=== PATIENT | male | born 1960 | race Two or more races ===

== ENCOUNTER 2025-05-17 18:28 | Inpatient (IN) | payer MEDICARE, MEDICAID ==
[~2025-05-17] VITALS: Ht 177.8 cm; Wt 118.0 kg
[~2025-05-17 18:28] MED LIST: ASPI325T6 PO; ATOR10TA52; CARV6.2551; DOXY100C4; FURO40TA4 PO; HYDROCODON-ACETAMINOPHN; IBUP-1456; INSLANTI; LISI-275; METF-370 PO; SULF-169
[2025-05-17 19:06] VITALS: PULSE 92; RESP 15; O2SAT 91
[2025-05-17 19:10] LABS: Hematocrit 45.0 % (41.0-53.0); Hemoglobin 15.2 g/dL (13.5-17.5); Mean Corpuscular Hemoglobin 30.1 pg (28.0-32.0); Mean Corpuscular Volume 89.2 fL (80.0-100.0); Nucleated Red Blood Cells % 0.0 %
[2025-05-17 19:34] LABS: Albumin 4.1 g/dL (3.2-4.8); Alkaline Phosphatase 88 U/L (46-116); Anion Gap 13 (5-15); BUN/Creatinine Ratio 13.6 (10.0-20.0); Blood Urea Nitrogen 22 mg/dL (9-23); Calcium 9.3 mg/dL (8.7-10.4); Carbon Dioxide 22 mmol/L (20-31); Potassium 3.8 mmol/L (3.5-5.1); Sodium 143 mmol/L (136-145); Total Protein 6.5 g/dL (5.7-8.2)
[2025-05-17 19:35] LABS: Alanine Aminotransferase 45 U/L (7-40); Bilirubin, Total 0.4 mg/dL (0.2-1.0); Chloride 108 mmol/L (98-107); Glucose 255 mg/dL (74-106)
--- NOTE | 2025-05-17 19:37 | DVH ---
CHEST RADIOGRAPH Indication: chest pain Technique: Single frontal view of the chest was obtained Comparison: None FINDINGS: Lines and Tubes: None Lungs: Bronchovascular crowding due 2 low lung volume with minimal bibasilar opacities. Pleura: No effusion. No pneumothorax. Cardiomediastinal contours: Mild cardiomegaly. Left-sided approach defibrillator is noted with visualized intact leads. Bones: No acute osseous abnormality. IMPRESSION: Bronchovascular crowding due to low lung volumes with bibasilar atelectasis / pneumonia.
--- NOTE | 2025-05-17 20:41 | ED.PDOC ---
History of Present Illness HPI Comments 65-year-old, obese male, with extensive cardiac history, presents with spouse for chief complaint of lightheadedness and diaphoresis. Per spouse, patient began experiencing episodes, suddenly and unprovoked, earlier, today. Patient also checked his blood pressure and noticed it was hypotensive in the 90s s ystolic prior to ED arrival. No reported further recent lifestyle or medication changes, sick contacts, travel, or pertinent information. He denies having any further acute symptoms. Chief Complaint: Chest Pain Time Seen by MD: 18:30 Primary Care Provider: NONE Reviewed Notes: Nurses Notes Allergies: Coded Allergies: NO KNOWN ALLERGIES (Unverified , 11/07/14) Home Meds Reported Medications Insulin Glargine (Lantus) 100 Units/Ml Vial, #10 06/29/15 Doxycycline Hyclate (Doxycycline Hyclate) 100 Mg Cap, #28 06/29/15 Sulfamethoxazole W/Trimethopri (Sulfamethoxazole/Trimetho) 1 Tab Tab, #28 06/29/15 Atorvastatin Calcium (ATORVASTATIN CALCIUM) 10 Mg Tab, #30 06/29/15 Ibuprofen (Ibuprofen) 800 Mg Tab, #30 06/29/15 [Hydrocodon-Acetaminophn] No Conflict Check, #30 06/29/15 Carvedilol (Carvedilol) 6.25 Mg Tab, #60 06/29/15 Lisinopril (Lisinopril) 5 Mg Tab, #30 16 Metformin Hydrochloride (Metformin Hcl) 500 Mg Tab, 500 MG PO DAILY for 30 Days, MG 11/07/14 Furosemide (Furosemide) 40 Mg Tab, 40 MG PO DAILY for 30 Days 11/07/14 Aspirin (Aspirin) 325 Mg Tab, 325 MG PO DAILY for 30 Days, MG 11/07/14 Information Source: Patient Mode of Arrival: Wheelchair Severity: Moderate Timing: Hours Duration: Intermittent Prehospital treatment: None Past Medical History PAST MEDICAL HISTORY: CHF, COPD, DM, HTN, DC Surgical History: Hernia Repair, Pacemaker, PTCA Family History Family History: No family hx of DM, No family hx of Heart charlene Social History Smoker: Cigarettes, Less Than 1 Pack/Day Alcohol: Occasionally Drugs: Denies Drug Use Lives In: Home All Other Systems: Reviewed and Negative (Comprehensive review of systems are negative unless otherwise stated in HPI) Physical Exam General Appearance: No Apparent Distress, Obese, Other (Chronically ill- appearing) HEENT: Normal ENT Inspection, Pharynx Normal, TMs Normal Neck: Full Range of Motion, Non-Tender, Normal, Normal Inspection Respiratory: Chest Non-Tender, Lungs Clear, No Accessory Muscle Use, No Respiratory Distress, Normal Breath Sounds Cardiovascular: No Edema, No JVD, No Murmur, No Gallop, Normal Peripheral Pulses, Regular Rate/Rhythm Breast Exam: Deferred Gastrointestinal: No Organomegaly, Non Tender, No Pulsatile Mass, Normal Bowel Sounds, Soft Genitalia: Deferred Pelvic: Deferred Rectal: Deferred Extremities: No calf tenderness, Normal capillary refill, Normal inspection, Normal range of motion, Non-tender, No pedal edema Musculoskeletal : Apperance: Normal Neurologic: Alert, chemical laboratory technician II-XII nml as Tested, No Motor Deficits, Normal Affect, Normal Mood, No Sensory Deficits Cerebellar Function: Normal Reflexes: Normal Skin: Dry, Normal Color, Warm Lymphatic: No Adenopathy Was a procedure done? Was a procedure done?: No EKG EKG #1: Pulse Rate (adult): 103 [place]: Normal Cardiac Rhythm: Junctional Block: None Hypertrophy: None ST: Normal EKG #2: Pulse Rate (adult): 91 [place]: Normal Cardiac Rhythm: Junctional Block: None Hypertrophy: None ST: Normal Differential Dx Considerations may include: Acute CHF/COPD exacerbation, hypotension, dehydration, electrolyte imbalance, DC, PE, ACS, CAD, among others X-Ray, Labs, Meds, VS Vital Signs Date Time Temp Pulse Resp B/P (MAP) Pulse Ox O2 Delivery O2 Flow Rate FiO2 05/17/25 20:41 91 05/17/25 20:00 97.8 92 14 90/56 (67) 92 97.8 05/17/25 19:22 91 05/17/25 19:06 97.4 91 15 94/59 (71) 94 97.4 05/17/25 19:06 92 15 91 Room Air* 0 21 05/17/25 18:57 95 05/17/25 18:48 97.4 60 16 96/61 (73) 95 97.4 05/17/25 18:29 103 05/17/25 18:28 97.4 60 16 96/61 95 97.4 Lab Test 05/17/25 19:42 11/30/25 18:50 Range/Units Troponin I High Sensitivity 16 18 </=54 ng/L White Blood Count 8.1 4.4-10.8 10^3/uL Red Blood Count 5.05 4.5-5.90 10^6/uL Hemoglobin 15.2 13.5-17.5 g/dL Hematocrit 45.0 41.0-53.0 % Mean Corpuscular Volume 89.2 80.0-100.0 fL Mean Corpuscular Hemoglobin 30.1 28.0-32.0 pg Mean Corpuscular Hemoglobin Concent 33.7 32.0-36.0 g/dL Red Cell Distribution Width 14.3 11.8-14.3 % Platelet Count 276 140-450 10^3/uL Mean Platelet Volume 8.2 6.9-10.8 fL Neutrophils (%) (Auto) 73.7 37.0-80.0 % Lymphocytes (%) (Auto) 18.1 10.0-50.0 % Monocytes (%) (Auto) 6.4 0.0-12.0 % Eosinophils (%) (Auto) 1.2 0.0-7.0 % Basophils (%) (Auto) 0.6 0.0-2.0 % Neutrophils # (Auto) 5.9 1.6-8.6 10 ^3/uL Lymphocytes # (Auto) 1.5 0.4-5.4 10 ^3/uL Monocytes # (Auto) 0.5 0-1.3 10 ^3/uL Eosinophils # (Auto) 0.1 0-0.8 10 ^3/uL Basophils # (Auto) 0 0-0.2 10 ^3/uL Nucleated Red Blood Cells 0.0 % Sodium Level 143 136-145 mmol/L Potassium Level 3.8 3.5-5.1 mmol/L Chloride Level 108 H 98-107 mmol/L Carbon Dioxide Level 22 20-31 mmol/L Anion Gap 13 5-15 Blood Urea Nitrogen 22 9-23 mg/dL Creatinine 1.62 H 0.700-1.30 mg/dL Glomerular Filtration Rate Calc 47 >90 mL/min BUN/Creatinine Ratio 13.6 10.0-20.0 Serum Glucose 255 H 74-106 mg/dL Calcium Level 9.3 8.7-10.4 mg/dL Total Bilirubin 0.4 0.2-1.0 mg/dL Aspartate Amino Transferase (AST) 26 13-40 U/L Alanine Aminotransferase (ALT) 45 H 7-40 U/L Alkaline Phosphatase 88 46-116 U/L Total Protein 6.5 5.7-8.2 g/dL Albumin 4.1 3.2-4.8 g/dL [facility] [id number] [place] [id number] Ph: [phone] DIAGNOSTIC IMAGING Diagnostic Imaging Report : [id number] Signed PATIENT: ASIF OLIVO ACCT: [id number] UNIT: [id number] : 1960 LOC: ER ROOM / BED: / AGE / SEX: 65 / M ADM STATUS: REG ER SERVICE 56 ORDERING PHYSICIAN: BRIANNA MOTT MD PROCEDURE(s): CXR1 - CHEST XRAY 1 VIEW REASON: chest pain ORDER NUMBER(s): [id number], ACCESSION NUMBER(s): [id number] CHEST RADIOGRAPH Indication: chest pain Technique: Single frontal view of the chest was obtained Comparison: None FINDINGS: Lines and Tubes: None Lungs: Bronchovascular crowding due 2 low lung volume with minimal bibasilar opacities. Pleura: No effusion. No pneumothorax. Cardiomediastinal contours: Mild cardiomegaly. Left-sided approach defibrillator is noted with visualized intact leads. Bones: No acute osseous abnormality. IMPRESSION: Bronchovascular crowding due to low lung volumes with bibasilar atelectasis / pneumonia. ATED BY: RIMA JIM DO DICTATED DATE/TIME: 05/17/251932 SIGNED BY: RIMA JIM DO SIGNED DATE/TIME: 05/17/251932 CC: Time of 1ST Reevaluation: 19:00 Reevaluation 1ST: Unchanged Patient Education/Counseling: Diagnosis, Treatment, Other (Need for admission) Family Education/Counseling: Diagnosis, Treatment, Other (Need for admission) SEPSIS Sepsis Screen Date sepsis recognized/suspect: May 17, 2025 Time Sepsis recognized/suspect: 1904 Recent Procedure: No On Antibiotic Therapy: No Respiratory Rate >20: No Heart Rate >90: Yes Temp<36 C (96.8 F) or >38.3 C: No SBP <90 or MAP <65 mmHG: No New Acute Mental Status Change: No Is the patient on CPAP, BIPAP,: No Physician Orders Electrocardigram (05/17/25 18:35) Electrocardigram (05/17/25 19:35) Electrocardigram (05/17/25 21:35) Troponin-I Hs (05/17/25 21:38) Chest Xray 1 View (05/17/25 18:57) Sodium Chloride 0.9% (05/17/25 21:00) Ceftriaxone 1gm/50ml (Rocephin) (05/17/25 21:00) Azithromycin 500mg/250ml (Zithromax 500m (05/17/25 21:00) B-Type Natriuretic Peptide (05/17/25 20:54) Aspirin Tablet (05/17/25 21:00) Vital Signs Date Time Temp Pulse Resp B/P (MAP) Pulse Ox O2 Delivery O2 Flow Rate FiO2 05/17/25 20:41 91 05/17/25 20:00 97.8 92 14 90/56 (67) 92 97.8 05/17/25 19:22 91 05/17/25 19:06 97.4 91 15 94/59 (71) 94 97.4 05/17/25 19:06 92 15 91 Room Air* 0 21 05/17/25 18:57 95 05/17/25 18:48 97.4 60 16 96/61 (73) 95 97.4 05/17/25 18:29 103 05/17/25 18:28 97.4 60 16 96/61 95 97.4 Laboratory Tests Test 05/17/25 18:50 White Blood Count 8.1 10^3/uL (4.4-10.8) Departure 1 Departure Time of Disposition: 20:55 Impression: Primary Impression: Acute coronary syndrome Additional Impressions: Pneumonitis Hypotension AICD discharge Acute renal injury Disposition: 09 ADMITTED INPATIENT Admit to: Tele Condition: Guarded Comments 65-year-old male with prior cardiac history now with chest pain and generalized weakness. His AICD went off prior to arrival. He is a bit hypotensive. Chest x-ray shows a bit of pneumonia or pneumonitis. His white count is a bit elevated. His creatinine is a bit elevated 1.67. I ordered some IV fluids and aspirin and IV antibiotics. Patient will need to be admitted for supportive care and further workup. Critical Care Note Critical Care Time?: Yes (35 min-critical care time only) Critical care comment: Total critical care time: Approximately 36 minutes Due to a high probability of clinically significant, life threatening deterioration, the patient required my highest level of preparedness to intervene emergently and I personally spent this critical care time directly and personally managing the patient. This critical care time included obtaining a history; examining the patient; pulse oximetry; ordering and review of studies; arranging urgent treatment with development of a management plan; evaluation of patient's response to treatment; frequent reassessment; and, discussions with other providers. This critical care time was performed to assess and manage the high probability of imminent, life-threatening deterioration that could result in multi-organ failure. It was exclusive of separately billable procedures and treating other patients. Stability Stability form required: No Heart Score Heart Score: Heart Score Response (Comments) Value History Highly Suspicious 2 EKG Repolarization Disturb 1 Age >65 2 Risk Factors >3 or Hx ASHD 2 Troponin Normal limit 0 Total 7 I personally scribed for BRIANNA MOTT MD ([email or web address]) on 05/17/25 at 20:41. Electronically submitted by Tez Blount ([email or web address]). BRIANNA MOTT MD May 17, 2025 20:41
[2025-05-17 21:01] VITALS: PULSE 89; RESP 17; O2SAT 94
[2025-05-17] MEDS: SODIUM CHLORIDE 0.9% 1,000 ML IV ONE (21:26)
[2025-05-17] MEDS ORDERED: MORPHINE SULFATE INJ 2 MG/ml SYRG IV PRN (21:30)
[2025-05-17] MEDS ORDERED: ONDANSETRON HCL 4 MG/2 ML VIAL IV PRN (21:30)
[2025-05-17] MEDS ORDERED: NITROGLYCERIN 0.4 MG SL TAB SL PRN (21:30)
[2025-05-17] MEDS ORDERED: DEXTROSE (50%) 50ML SYRG IV PRN (21:30)
--- NOTE | 2025-05-17 21:52 | DVHHP2 ---
History of Present Illness Reason for Visit: Acute coronary syndrome History of Present Illness The patient is a 65-year-old male with past medical history of COPD, CHF, VA, diabetes mellitus, and hypertension who presented to [facility] ED with complaint of chest pain. Patient reports he has been experiencing sub sternal chest pain at home, associated with lightheadedness, diaphoresis, hypotensive, getting worse that prompted this visit. Patient was seen and evaluated in the ED, laboratory data shows WBC 8.1, platelets 276, sodium 143, potassium 3.8, BUN 22, creatinine 1.62, GFR 47, glucose 255, calcium 9.3, BNP 504.18, troponin 16, AST 26, ALT 45, blood pressure 90/56, heart rate 92, tempe rature 97.8 F, O2 saturation 92% on oxygen. Chest x-ray revealing bronchovascular crowding due to low lung volumes with bibasilar atelectasis/pneumonia. Patient was started on IV antibiotic regimen azithromycin, please see medication orders section in the computer. On my assessment, at bedside, patient denied chest pain at this moment, no headache, dizziness, diaphoresis, currently on oxygen, no diarrhea, nausea, vomiting, fever, no chills. Patient was admitted for further evaluation and medical management. Past Medical History CHF, COPD, DM, HTN, VA Past Surgical History Hernia Repair, Pacemaker, PTCA Family History Reviewed, noncontributory to the management of this case. Past Social History The patient lives at home, smokes cigarettes less than 1 pack per day, drinks alcohol occasionally, denies illicit drugs abuse. Review of Systems Constitutional: Yes: Weakness; No: Fever, Chills, Sweats, Malaise, Other Eyes: No: Pain, Vision change, Conjunctivae inflammation, Eyelid inflammation, Other, Redness ENT: No: Ear pain, Ear discharge, Nose pain, Nose discharge, Nose congestion, Mouth pain, Mouth swelling, Throat pain, Throat swelling, Other Respiratory: Shortness of breath; No: Cough, Dry, SOB with excertion, Wheezing, Hemoptysis, Pleuritic Pain, Sputum, Wheezing, Other Cardiovascular: Chest Pain, Lt Headedness, Other (Diaphoresis); No: Palpitations, Orthopnea, Paroxysmal Noc. Dyspnea, Edema Gastrointestinal: No: Nausea, Vomiting, Abdominal Pain, Diarrhea, Constipation, Melena, Hematochezia, Other Genitourinary: No Dysuria, No Frequency, No Incontinence, No Hematuria, No Ret ention, No Other Musculoskeletal: No: other, neck pain, shoulder pain, arm pain, back pain, hand pain, leg pain, foot pain Skin: No: Rash, Lesions, Jaundice, Bruising, Other Neurological: No: Weakness, Numbness, Incoordination, Change in speech, Confusion, Seizures, Other Allergies: Coded Allergies: NO KNOWN ALLERGIES (Unverified , 11/07/14) Exam Vital Signs Vital Signs Date Time Temp Pulse Resp B/P (MAP) Pulse Ox O2 Delivery O2 Flow Rate FiO2 05/17/25 20:41 91 05/17/25 20:00 97.8 14 90/56 (67) 92 97.8 05/17/25 19:06 Room Air* 0 21 General Appearance: Alert, Oriented X3, Cooperative, No acute distress HEENT: Atraumatic, PERRLA, EOMI, Mucous membr. moist/pink Respiratory: Normal air movement, Other (Diminished breath sounds) Cardiovascular: Regular rate, Normal S1, Normal S2, No murmurs Abdominal: Normal bowel sounds, Soft, No tenderness, No hepatospenomegaly, No masses Extremities: No clubbing, No cyanosis, No edema, Normal pulses, No tenderness /swelling Skin: No rashes, No significant lesion Neuro: Normal speech, Normal tone, Sensation intact, Cranial nerves 3-12 NL, Reflexes 2+, Other (Generalized weakness) Psych/Mental Status: Mental status NL, Mood NL Labs/Xrays Labs Test 05/17/25 19:42 05/17/25 18:50 Range/Units Troponin I High Sensitivity 16 </=54 ng/L White Blood Count 8.1 4.4-10.8 10^3/uL Red Blood Count 5.05 4.5-5.90 10^6/uL Hemoglobin 15.2 13.5-17.5 g/dL Hematocrit 45.0 41.0-53.0 % Mean Corpuscular Volume 89.2 80.0-100.0 fL Mean Corpuscular Hemoglobin 30.1 28.0-32.0 pg Mean Corpuscular Hemoglobin Concent 33.7 32.0-36.0 g/dL Red Cell Distribution Width 14.3 11.8-14.3 % Platelet Count 276 140-450 10^3/uL Mean Platelet Volume 8.2 6.9-10.8 fL Neutrophils (%) (Auto) 73.7 37.0-80.0 % Lymphocytes (%) (Auto) 18.1 10.0-50.0 % Monocytes (%) (Auto) 6.4 0.0-12.0 % Eosinophils (%) (Auto) 1.2 0.0-7.0 % Basophils (%) (Auto) 0.6 0.0-2.0 % Neutrophils # (Auto) 5.9 1.6-8.6 10 ^3/uL Lymphocytes # (Auto) 1.5 0.4-5.4 10 ^3/uL Monocytes # (Auto) 0.5 0-1.3 10 ^3/uL Eosinophils # (Auto) 0.1 0-0.8 10 ^3/uL Basophils # (Auto) 0 0-0.2 10 ^3/uL Nucleated Red Blood Cells 0.0 % Sodium Level 143 136-145 mmol/L Potassium Level 3.8 3.5-5.1 mmol/L Chloride Level 108 H 98-107 mmol/L Carbon Dioxide Level 22 20-31 mmol/L Anion Gap 13 5-15 Blood Urea Nitrogen 22 9-23 mg/dL Creatinine 1.62 H 0.700-1.30 mg/dL Glomerular Filtration Rate Calc 47 >90 mL/min BUN/Creatinine Ratio 13.6 10.0-20.0 Serum Glucose 255 H 74-106 mg/dL Calcium Level 9.3 8.7-10.4 mg/dL Total Bilirubin 0.4 0.2-1.0 mg/dL Aspartate Amino Transferase (AST) 26 13-40 U/L Alanine Aminotransferase (ALT) 45 H 7-40 U/L Alkaline Phosphatase 88 46-116 U/L B-Type Natriuretic Peptide 504.18 0-100 pg/mL Total Protein 6.5 5.7-8.2 g/dL Albumin 4.1 3.2-4.8 g/dL PATIENT: ASIF OLIVO ACCT: [id number] UNIT: [id number] : 1960 LOC: ER ROOM / BED: / AGE / SEX: 65 / M ADM STATUS: REG ER SERVICE 2163 ORDERING PHYSICIAN: BRIANNA MOTT MD PROCEDURE(s): CXR1 - CHEST XRAY 1 VIEW REASON: chest pain ORDER NUMBER(s): [id number], ACCESSION NUMBER(s): [id number] CHEST RADIOGRAPH Indication: chest pain Technique: Single frontal view of the chest was obtained Comparison: None FINDINGS: Lines and Tubes: None Lungs: Bronchovascular crowding due 2 low lung volume with minimal bibasilar opacities. Pleura: No effusion. No pneumothorax. Cardiomediastinal contours: Mild cardiomegaly. Left-sided approach defibrillator is noted with visualized intact leads. Bones: No acute osseous abnormality. IMPRESSION: Bronchovascular crowding due to low lung volumes with bibasilar atelectasis/pneumonia. SEPSIS Sepsis Screen Date sepsis recognized/suspect: May 17, 2025 Time Sepsis recognized/suspect: 1904 Recent Procedure: No On Antibiotic Therapy: No Respiratory Rate >20: No Heart Rate >90: Yes Temp<36 C (96.8 F) or >38.3 C: No SBP <90 or MAP <65 mmHG: No New Acute Mental Status Change: No Is the patient on CPAP, BIPAP,: No Physician Orders Electrocardigram (05/17/25 18:35) Electrocardigram (05/17/25 19:35) Electrocardigram (05/17/25 21:35) Troponin-I Hs (05/17/25 21:38) Chest Xray 1 View (05/17/25 18:57) Sodium Chloride 0.9% (05/17/25 21:00) Azithromycin 500mg/250ml (Zithromax 500m (05/17/25 21:00) Aspirin Chewable Tablet (05/18/25 10:00) Atorvastatin (Lipitor) (05/17/25 22:00) Ceftriaxone Ivpb Rocephin (05/18/25 09:00) Azithromycin 500mg/250ml (Zithromax 500m (05/18/25 10:00) Carvedilol Tablet (Coreg Tablet) (05/17/25 22:00) Consistent Carb(Ccho)Diabetes (05/18/25 Breakfast) Furosemide Injection (Lasix Injection) (05/18/25 10:00) Glucose Blood (Accu-Chek Comfort Curve T (05/18/25 00:00) Moderate Insulin Ss (05/18/25 00:00) Dextrose 50% Syringe (05/17/25 21:30) Admit (05/17/25:30) Allergies (05/17/25:) Code Status (05/17/25:) Sodium Chloride Lock (Saline Lock Ns) (05/17/25 22:00) Oxygen Per Hour (05/17/25:30) Hydrocodone-Acet 5/325mg Tab ([place] 5/32 (05/17/25:30) Ondansetron Hcl (Zofran) (05/17/25:30) Docusate Sodium Capsule (Colace Capsule) (05/17/25:30) Complete Blood Count (05/18/25 04:00) Comprehensive Metabolic Panel (05/18/25 04:00) Echo 2d Mode Cardiac Dop (05/17/25:30) Condition: Serious (05/17/25:30) Acetaminophen Tablet (Tylenol Tablet) (05/17/25:30) Bedrest With Bathroom Privileg (05/17/25:) Maintain Bed Rest (05/17/25:30) Sequential Compression Device (05/17/25 ) Nitroglycerin Sublingual (Ntrostat Subli (05/17/25:) Morphine Sulfate Injection (05/17/25:30) Stat Ekg For Chest Pain (05/17/25:30) Notify Md Of Changes From Base (05/17/25 21:30) Gold Leaf Printer For 24 Hours (05/17/25:30) Emergency Dysrhythmia Protocol (05/17/25:30) Rhythm Strips Once Every Shift (05/17/25 21:30) Oxygen By Nasal Cannula (05/17/25:30) Vital Signs Date Time Temp Pulse Resp B/P (MAP) Pulse Ox O2 Delivery O2 Flow Rate FiO2 05/17/25 20:41 91 05/17/25 20:00 97.8 92 14 90/56 (67) 92 97.8 05/17/25 19:22 91 05/17/25 19:06 97.4 91 15 94/59 (71) 94 97.4 05/17/25 19:06 92 15 91 Room Air* 0 21 05/17/25 18:57 95 05/17/25 18:48 97.4 60 16 96/61 (73) 95 97.4 05/17/25 18:29 103 05/17/25 18:28 97.4 60 16 96/61 95 97.4 Laboratory Tests Test 05/17/25 18:50 White Blood Count 8.1 10^3/uL (4.4-10.8) Medications Medications Dose Ordered Sig/Macho Route Start Time Stop Time Status Last Admin Dose Admin Aspirin 325 mg ONCE ONCE PO 05/17/25 21:00 05/17/25 21:01 DC 05/17/25 21:21 325 MG Ceftriaxone Sodium 50 ml @ 100 mls/hr ONCE ONCE IV 05/17/25 21:00 05/17/25 21:29 DC 05/17/25 21:27 100 MLS/HR Sodium Chloride 1,000 ml @ 150 mls/hr Q6H40M ONCE IV 05/17/25 21:00 05/18/25 03:39 05/17/25 21:26 150 MLS/HR Assessment/Plan Assessment/Plan Acute coronary syndrome Hypotension AICD discharge Pneumonia, unspecified organism Acute renal injury Uncontrolled diabetes mellitus Hyperglycemia due to type 2 diabetes mellitus Acute exacerbation of congestive heart failure Plan 1. Admit to telemetry unit 2. Breathing treatment 3. Pain control management 4. IV antibiotic management 5. Management of fluids and electrolytes 6. Consultation for Cardiology/hospitalist 7. Diagnostic test chest x-ray 8. DVT prophylaxis-on aspirin 9. Repeat labs CBC, CMP in a.m. 10. Home medication reviewed and reconciled 11. Continue with current medical management 12. Treatment plan discussed with patient/ and RN. Patient/ verbalized understanding. Plan discussed with: Patient, Other (RN) My Orders Orders - SAI RASHID DNP Procedure Category Date Status Time Aspirin Chewable PHA 05/18/25 Verified Tablet 10:00 Atorvastatin (Lipitor) PHA 05/17/25 Verified 22:00 Ceftriaxone Ivpb PHA 05/18/25 Verified Rocephin 09:00 Azithromycin PHA 05/18/25 Verified 500mg/250ml 10:00 Carvedilol Tablet PHA 05/17/25 Verified (Coreg Tablet) 22:00 Consistent DIET 05/18/25 Verified Carb(Ccho)Diabetes Breakfast Furosemide Injection PHA 05/18/25 Verified (Lasix Injection) 10:00 Glucose Blood PHA 05/18/25 Verified (Accu-Chek Comfort 00:00 Moderate Insulin Ss PHA 05/18/25 Verified 00:00 Dextrose 50% Syringe PHA 05/17/25 Verified 21:30 Admit ADMIT 05/17/25 Verified 21:[address] [facility] 05/17/25 Verified 21:30 Code Status CODE 05/17/25 Verified 21:30 Sodium Chloride Lock PHA 05/17/25 Verified (Saline Lock Ns) 22:00 Oxygen Per Hour RT 05/17/25 Verified 21:30 Hydrocodone-Acet PHA 05/17/25 Verified 5/325mg Tab ([place] 21:30 Ondansetron Hcl PHA 05/17/25 Verified (Zofran) 21:30 Docusate Sodium PHA 05/17/25 Verified Capsule (Colace 21:30 Complete Blood Count LAB 05/18/25 Verified 04:00 Comprehensive LAB 05/18/25 Verified Metabolic Panel 04:00 Echo 2d Mode Cardiac US 05/17/25 Verified DOP 21:30 Condition: Serious [facility] 05/17/25 Verified 21:30 Acetaminophen Tablet [facility] 05/17/25 Verified (Tylenol Tablet) 21:30 Bedrest With Bathroom [facility] 05/17/25 Verified Privileg 21:30 Maintain Bed Rest [facility] 05/17/25 Verified 21:[address] [facility] 05/17/25 Verified Compression Device Nitroglycerin [facility] 05/17/25 Verified Sublingual (Ntrostat 21:30 Morphine Sulfate [facility] 05/17/25 Verified Injection 21:30 Stat Ekg For Chest [facility] 05/17/25 Verified Pain 21:30 Notify Md Of Changes [facility] 05/17/25 Verified From Base 21:30 Gold Leaf Printer For [facility] 05/17/25 Verified 24 Hours 21:30 Emergency Dysrhythmia [facility] 05/17/25 Verified Protocol 21:30 Rhythm Strips Once [facility] 05/17/25 Verified Every Shift 21:30 Oxygen By Nasal RT 05/17/25 Verified Cannula 21:30 Problem List: (1) Acute coronary syndrome (2) Hypotension (3) AICD discharge (4) Pneumonia, unspecified organism (5) Acute renal injury (6) Uncontrolled diabetes mellitus (7) Hyperglycemia due to type 2 diabetes mellitus (8) Acute exacerbation of congestive heart failure Date of Service: May 17, 2025 Billing Provider: SAI RASHID DNP Common Visit Codes: 12433-[id number] INP/OBS CARE (HIGH) SAI RASHID DNP May 17, 2025 21:52
[2025-05-17] MEDS: SODIUM CHLOR 0.9% PF (SALINE LOCK) 10ML VIAL/SYR IV SCH (22:00)
[2025-05-17] MEDS: ACETAMINOPHEN 325 MG TAB PO PRN (22:40)
[2025-05-17] MEDS: DOCUSATE SOD 100 MG CAP PO PRN (22:40)
[2025-05-17] MEDS: HYDROcodone-ACET 5/325MG TAB PO PRN (22:41)
[2025-05-17] MEDS: ATORVASTATIN 20 MG TAB PO SCH (22:41)
[2025-05-17] MEDS: AZITHROMYCIN 500MG/250ML 250 ML IV ONE (22:47)
[2025-05-17] MEDS: CARVEDILOL 3.125 MG TAB PO SCH (22:56)
[2025-05-18] MEDS: ACCU-CHEK COMFORT CURVE STRIP VI SCH (00:16)
[2025-05-18] MEDS: InsuLIN REG 1unit/0.01ml Soln (100units/ml) SC SCH (00:19)
--- NOTE | 2025-05-18 03:43 | ECG ---
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
--- NOTE | 2025-05-18 03:43 | ECG ---
[facility] Test Date: 2025-05-17 Test Time: 21:27:10 Pat Name: ASIF OLIVO Department: ED Room: 0294T Gender: M It Systems Analyst Consultant: ZHANNA : 1960 Requested By: BRIANNA MOTT Order Number: [id number] Reading MD: Titus Bray Measurements Intervals [place] Rate: 101 P: 0 MA: 124 QRS: -41 QRSD: 205 T: 150 QT: 474 QTc: 615 Interpretive Statements Ventricular-paced complexes No further rhythm analysis attempted due to paced rhythm Nonspecific IVCD with LAD LVH with secondary repolarization abnormality Electronically Signed On 05-19-2025 15:06:54 PST by Titus Bray Please click the below link to view image of tracing.
[2025-05-18 05:11] LABS: Hematocrit 43.9 % (41.0-53.0); Hemoglobin 14.7 g/dL (13.5-17.5); Mean Corpuscular Hemoglobin 29.7 pg (28.0-32.0); Mean Corpuscular Volume 88.5 fL (80.0-100.0); Nucleated Red Blood Cells % 0.0 %
[2025-05-18 05:38] LABS: Alanine Aminotransferase 39 U/L (7-40); Albumin 3.9 g/dL (3.2-4.8); Alkaline Phosphatase 74 U/L (46-116); Anion Gap 11 (5-15); BUN/Creatinine Ratio 17.6 (10.0-20.0); Blood Urea Nitrogen 22 mg/dL (9-23); Calcium 9.0 mg/dL (8.7-10.4); Carbon Dioxide 24 mmol/L (20-31); Potassium 4.6 mmol/L (3.5-5.1); Total Protein 6.4 g/dL (5.7-8.2)
[2025-05-18 05:40] LABS: Chloride 112 mmol/L (98-107); Sodium 147 mmol/L (136-145)
[2025-05-18 05:41] LABS: Bilirubin, Total 0.3 mg/dL (0.2-1.0); Glucose 122 mg/dL (74-106)
[2025-05-18 07:15] VITALS: PULSE 70; RESP 14; O2SAT 100
--- NOTE | 2025-05-18 07:24 | ECG ---
[facility] Test Date: 2025-05-17 Test Time: 18:29:45 Pat Name: ASIF OLIVO Department: ED Room: 0294T Gender: M Pediatric Associate: karen : 1960 Requested By: BRIANNA MOTT Order Number: [id number] Reading MD: Titus Bray Measurements Intervals [place] Rate: 103 P: 0 IL: 0 QRS: -44 QRSD: 178 T: 137 QT: 461 QTc: 604 Interpretive Statements Junctional tachycardia, Wide-complex tachycardia LVH with IVCD, LAD and secondary repol abnrm Prolonged QT interval Electronically Signed On 05-19-2025 15:04:27 PST by Titus Bray Please click the below link to view image of tracing.
[2025-05-18] MEDS: FUROSEMIDE 40 MG/4 ML VIAL IV SCH (10:06)
--- NOTE | 2025-05-18 16:51 | DVHPN2 ---
Subjective mild chest pain Reviewed: H&P Changes from previous H/P or p: No Changes Eyes: No Pain, No Vision change, No Conjunctivae inflammation, No Eyelid inflammation, No Other, No Redness ENT: No Ear pain, No Ear discharge, No Nose pain, No Nose discharge, No Nose congestion, No Mouth pain, No Mouth swelling, No Throat pain, No Throat swelling, No Other Cardiovascular: Chest Pain; No Palpitations, No Orthopnea, No Paroxysmal Noc. Dyspnea, No Edema; Lt Headedness, Other (Diaphoresis) Respiratory: No Cough, No Dry; Shortness of breath; No SOB with excertion, No Wheezing, No Hemoptysis, No Pleuritic Pain, No Sputum, No Other Gastrointestinal: No Nausea, No Vomiting, No Abdominal Pain, No Diarrhea, No Constipation, No Melena, No Hematochezia, No Other Genitourinary: No Dysuria, No Frequency, No Incontinence, No Hematuria, No Retention, No Other Musculoskeletal: No other, No neck pain, No shoulder pain, No arm pain, No back pain, No hand pain, No leg pain, No foot pain Skin: No Rash, No Lesions, No Jaundice, No Bruising, No Other Objective Vitals Vital Signs Date Time Temp Pulse Resp B/P (MAP) Pulse Ox O2 Delivery O2 Flow Rate FiO2 05/18/25 15:54 70 18 106/57 (73) 96 05/18/25 07:15 Room Air* 0 21 05/18/25 07:15 98.3 98.3 Intake/Output Intake and Output 05/18/25 05:00 Intake Total 300 ml Balance 300 ml Intake IV Total 300 ml General Appearance: Alert, Oriented X3 HEENT: Atraumatic Lungs: Clear to auscultation Cardiovascular: Regular rate, Normal S1, Normal S2 Abdomen: Normal bowel sounds Medications Current Medications Medications Dose Ordered Sig/Macho Route Start Time Stop Time Status Last Admin Dose Admin Aspirin 81 mg DAILY PO 05/18/25 10:00 05/18/25 10:05 81 MG Atorvastatin Calcium 10 mg HS PO 05/17/25 22:00 05/17/25 22:41 10 MG Ceftriaxone Sodium 50 ml @ 100 mls/hr DAILY@09 IV 05/18/25 09:00 05/18/25 09:10 100 MLS/HR Azithromycin 250 ml @ 125 mls/hr Q24H IV 05/18/25 21:00 Future Hold Carvedilol 3.125 mg Q12HR PO 05/17/25 22:00 05/18/25 10:05 3.125 MG Furosemide 40 mg DAILY IV 05/18/25 10:00 05/18/25 10:06 40 MG Diagnostic Test (Pha) 1 strip Q6HR 05/18/25 00:00 05/18/25 12:18 1 STRIP Insulin Human Regular Q6HR SC 05/18/25 00:00 05/18/25 12:39 3 UNITS Dextrose 50 ml UD PRN IV 05/17/25 21:30 Sodium Chloride 10 ml Q8HR IV 05/17/25 22:00 05/18/25 14:08 10 ML Acetaminophen/ Hydrocodone Bitart 1 tab Q4HP PRN PO 05/17/25 21:30 05/17/25 22:41 1 TAB Ondansetron HCl 4 mg Q4HP PRN IV 05/17/25 21:30 Docusate Sodium 100 mg BIDPRN PRN PO 05/17/25 21:30 05/17/25 22:40 100 MG Acetaminophen 650 mg Q6HP PRN PO 05/17/25 21:30 05/17/25 22:40 650 MG Nitroglycerin 0.4 mg Q5MINP PRN SL 05/17/25 21:30 Morphine Sulfate 2 mg Q30M PRN IV 05/17/25 21:30 Laboratory Results Laboratory Tests 05/18/25 04:33 Chemistry Test 05/17/25 18:50 05/18/25 04:33 Albumin 4.1 g/dL (3.2-4.8) 3.9 g/dL (3.2-4.8) Calcium Level 9.3 mg/dL (8.7-10.4) 9.0 mg/dL (8.7-10.4) Total Protein 6.5 g/dL (5.7-8.2) 6.4 g/dL (5.7-8.2) Cardiac Markers Test 05/17/25 18:50 B-Type Natriuretic Peptide 504.18 pg/mL (0-100) LFT Test 05/17/25 18:50 05/18/25 04:33 Alanine Aminotransferase (ALT) 45 U/L (7-40) H 39 U/L (7-40) Alkaline Phosphatase 88 U/L (46-116) 74 U/L (46-116) Aspartate Amino Transferase (AST) 26 U/L (13-40) 23 U/L (13-40) Total Bilirubin 0.4 mg/dL (0.2-1.0) 0.3 mg/dL (0.2-1.0) Assessment/Plan Assessment/Plan (1) Acute coronary syndrome (2) Hypotension (3) AICD discharge (4) Pneumonia, unspecified organism (5) Acute renal injury (6) Uncontrolled diabetes mellitus (7) Hyperglycemia due to type 2 diabetes mellitus (8) Acute exacerbation of congestive heart failure Continue IV abx echo cardiogram IVF Plan discussed with: Patient Date of Service: May 18, 2025 Billing Provider: BIRD DAVEY MD Common Visit Codes: [id number] INP/OBS CARE(HIGH) BIRD DAVEY MD May 18, 2025 16:51
[2025-05-18 17:34] VITALS: BP 125/76; PULSE 70; RESP 18; TEMP 97.5; O2SAT 97
[2025-05-18 20:00] VITALS: PULSE 70; RESP 17; O2SAT 95
[2025-05-18 21:00] VITALS: BP 130/80; PULSE 70; RESP 17; TEMP 98.6; O2SAT 95
[2025-05-18] MEDS ORDERED: AZITHROMYCIN 500MG/250ML 250 ML IV SCH (21:00)
[2025-05-19] VITALS (8 sets, daily range): BP systolic 102–131; BP diastolic 63–80; PULSE 70–73; RESP 16–22; TEMP 97.6–98.4; O2SAT 95–99
--- NOTE | 2025-05-19 17:44 | DVHPN2 ---
Subjective mild chest pain Reviewed: H&P Changes from previous H/P or p: No Changes Eyes: No Pain, No Vision change, No Conjunctivae inflammation, No Eyelid inflammation, No Other, No Redness ENT: No Ear pain, No Ear discharge, No Nose pain, No Nose discharge, No Nose congestion, No Mouth pain, No Mouth swelling, No Throat pain, No Throat swelling, No Other Cardiovascular: Chest Pain; No Palpitations, No Orthopnea, No Paroxysmal Noc. Dyspnea, No Edema; Lt Headedness, Other (Diaphoresis) Respiratory: No Cough, No Dry; Shortness of breath; No SOB with excertion, No Wheezing, No Hemoptysis, No Pleuritic Pain, No Sputum, No Other Gastrointestinal: No Nausea, No Vomiting, No Abdominal Pain, No Diarrhea, No Constipation, No Melena, No Hematochezia, No Other Genitourinary: No Dysuria, No Frequency, No Incontinence, No Hematuria, No Retention, No Other Musculoskeletal: No other, No neck pain, No shoulder pain, No arm pain, No back pain, No hand pain, No leg pain, No foot pain Skin: No Rash, No Lesions, No Jaundice, No Bruising, No Other Objective Vitals Vital Signs Date Time Temp Pulse Resp B/P (MAP) Pulse Ox O2 Delivery O2 Flow Rate FiO2 05/19/25 13:00 97.9 73 16 115/71 (86) 96 97.9 05/19/25 08:00 Room Air* 0 21 Intake/Output Intake and Output 05/19/25 05:00 Intake Total 575 ml Output Total 1640 ml Balance -1065 ml Intake Oral 525 ml IV Total 50 ml Output Urine Total 1640 ml # Voids 2 General Appearance: Alert, Oriented X3 HEENT: Atraumatic Lungs: Clear to auscultation Cardiovascular: Regular rate, Normal S1, Normal S2 Abdomen: Normal bowel sounds Medications Current Medications Medications Dose Ordered Sig/Macho Route Start Time Stop Time Status Last Admin Dose Admin Aspirin 81 mg DAILY PO 05/18/25 10:00 05/19/25 09:50 81 MG Atorvastatin Calcium 10 mg HS PO 05/17/25 22:00 05/18/25 21:00 10 MG Ceftriaxone Sodium 50 ml @ 100 mls/hr DAILY@09 IV 05/18/25 09:00 05/19/25 09:50 100 MLS/HR Azithromycin 250 ml @ 125 mls/hr Q24H IV 05/18/25 21:00 Hold Carvedilol 3.125 mg Q12HR PO 05/17/25 22:00 05/18/25 21:00 3.125 MG Furosemide 40 mg DAILY IV 05/18/25 10:00 05/19/25 11:57 40 MG Diagnostic Test (Pha) 1 strip Q6HR 05/18/25 00:00 05/19/25 16:27 1 STRIP Insulin Human Regular Q6HR SC 05/18/25 00:00 05/19/25 16:27 3 UNITS Dextrose 50 ml UD PRN IV 05/17/25 21:30 Sodium Chloride 10 ml Q8HR IV 05/17/25 22:00 05/19/25 14:00 10 ML Acetaminophen/ Hydrocodone Bitart 1 tab Q4HP PRN PO 05/17/25 21:30 05/18/25 21:00 1 TAB Ondansetron HCl 4 mg Q4HP PRN IV 05/17/25 21:30 Docusate Sodium 100 mg BIDPRN PRN PO 05/17/25 21:30 05/17/25 22:40 100 MG Acetaminophen 650 mg Q6HP PRN PO 05/17/25 21:30 05/17/25 22:40 650 MG Nitroglycerin 0.4 mg Q5MINP PRN SL 05/17/25 21:30 Morphine Sulfate 2 mg Q30M PRN IV 05/17/25 21:30 Laboratory Results Laboratory Tests 05/18/25 04:33 Assessment/Plan Assessment/Plan (1) Acute coronary syndrome (2) Hypotension (3) AICD discharge (4) Pneumonia, unspecified organism (5) Acute renal injury (6) Uncontrolled diabetes mellitus (7) Hyperglycemia due to type 2 diabetes mellitus (8) Acute exacerbation of congestive heart failure Continue IV abx echo cardiogram IVF Plan discussed with: Patient Date of Service: May 19, 2025 Billing Provider: BIRD DAVEY MD Common Visit Codes: [id number] INP/OBS CARE(HIGH) BIRD DAVEY MD May 19, 2025 17:44
[2025-05-20] VITALS (8 sets, daily range): BP systolic 104–120; BP diastolic 62–88; PULSE 70–118; RESP 16–18; TEMP 97.2–98.7; O2SAT 92–97
--- NOTE | 2025-05-20 07:11 | DVHSR ---
APPROVED REPORT EXAM: Two-dimensional and M-mode echocardiogram with Doppler and color Doppler. Blood Pressure: 96/71 mmHg INDICATION CHF exacerbation, unspecified Surgery/Intervention Pacemaker: RISK FACTORS Obesity: Height: 5'10", Weight: 242 DIMENSIONS LVDd 7.0 (3.8-5.7cm) LA (2D) 4.9 (1.9-4.0cm) Aortic Root 4.2 (2.0-3.7cm) LVDs 6.7 (2.5-4.0cm) LA (MM) (1.9-4.0cm) Aortic Cusp Exc 1.9 (1.5-2.0cm) EF (%) 10.0 (55-70%) Rt. Atrium 4.7 (1.9-4.0cm) Asc. Aorta cm IVSd 1.1 (0.7-1.1cm) RV (D) (1.8-2.4cm) PWd 1.2 (0.7-1.1cm) Mitral Valve Mitral Mitral Stenosis E wave 0.58m/s MV Mean GR. mmHg A wave 0.95m/s MV Peak GR. mmHg E/A ratio 0.6 2D MVA cm2 DECEL Time 166ms PRESS 1/2 Time ms Aortic Valve Aortic Valve Aortic Stenosis V1 0.61m/s AO Mean GR. 2mmHg V2 0.91m/s AO Peak GR. 3mmHg LVOT Diameter 2.8 (1.8-2.4cm) Doppler FAIZA 4.13cm2 Pulmonic Valve V2 0.78m/s Other Information Quality : Limited Rhythm : Technically limited study due to body habitus. Conclusion lvef 20-25% dilated LV basal inferolateral wall aneurysm formation noted RV not well seen left atrium enlarged mild to moderate mitral regurg
[2025-05-20 09:24] LABS: Hematocrit 43.0 % (41.0-53.0); Hemoglobin 14.4 g/dL (13.5-17.5); Mean Corpuscular Hemoglobin 29.5 pg (28.0-32.0); Mean Corpuscular Volume 87.9 fL (80.0-100.0); Nucleated Red Blood Cells % 0.0 %
[2025-05-20 09:35] LABS: Chloride 105 mmol/L (98-107); Potassium 3.8 mmol/L (3.5-5.1); Sodium 141 mmol/L (136-145)
[2025-05-20 09:36] LABS: Anion Gap 11 (5-15); Carbon Dioxide 25 mmol/L (20-31)
[2025-05-20 09:37] LABS: Calcium 9.0 mg/dL (8.7-10.4)
[2025-05-20 09:42] LABS: BUN/Creatinine Ratio 17.2 (10.0-20.0); Blood Urea Nitrogen 21 mg/dL (9-23); Magnesium 2.1 mg/dL (1.6-2.6); Triglycerides 109 mg/dL (< 150)
[2025-05-20 09:44] LABS: Cholesterol 145 mg/dL (< 200); HDL Cholesterol 48 mg/dL (40-59)
[2025-05-20 10:09] LABS: Glucose 167 mg/dL (74-106)
--- NOTE | 2025-05-20 14:13 | DVHINCON2 ---
Date Seen: May 20, 2025 Referring Physician MD Luis Alberto Reason for Consultation AICD fired History of Present Illness This is a 65-year-old male patient who presents to emergency room with chief complaint of shortness of breath, lightheadedness, and diaphoresis that began on the day of emergency room arrival. The patient's was driving the patient over to the emergency room when suddenly the patient states he felt his ICD fire. Cardiology has now been consulted for further evaluation. Initial twelve lead electrocardiogram reveals an accelerated junctional rhythm with right bundle branch block. Overnight, the patient was noted to have sustained V-tach on manager cardiac. Significant past medical history includes coronary artery disease status post PTCA x 7 MINA (on ASA), myocardial infarctions, congestive heart failure, ischemic cardiomyopathy, AICD (Phillips), hepatitis-C, and obesity. The patient follows up with primary animal control officer at [facility]. He reports undergoing a coronary angiogram in October of this year without any catheter based intervention. Past Medical History Past medical history reviewed. No other significant than mentioned above. Past Surgical History Hernia repair Family History: Family history: Cardiovascular disease G8 MOTHER G8 FATHER Family history: Diabetes mellitus G8 BROTHER Family History Family history reviewed. Social History The patient reports a previous methamphetamine abuse, quit six years ago Patient has a 20 pack-year history, quit smoking 10 years ago Denies alcohol use Allergies: Coded Allergies: NO KNOWN ALLERGIES (Unverified , 11/07/14) Home Meds Reported Medications Insulin Glargine (Lantus) 100 Units/Ml Vial, #10 06/29/15 Doxycycline Hyclate (Doxycycline Hyclate) 100 Mg Cap, #28 06/29/15 Sulfamethoxazole W/Trimethopri (Sulfamethoxazole/Trimetho) 1 Tab Tab, #28 06/29/15 Atorvastatin Calcium (ATORVASTATIN CALCIUM) 10 Mg Tab, #30 06/29/15 Ibuprofen (Ibuprofen) 800 Mg Tab, #30 06/29/15 [Hydrocodon-Acetaminophn] No Conflict Check, #30 06/29/15 Carvedilol (Carvedilol) 6.25 Mg Tab, #60 06/29/15 Lisinopril (Lisinopril) 5 Mg Tab, #30 06/29/15 Metformin Hydrochloride (Metformin Hcl) 500 Mg Tab, 500 MG PO DAILY for 30 Days, MG 11/07/14 Furosemide (Furosemide) 40 Mg Tab, 40 MG PO DAILY for 30 Days 11/07/14 Aspirin (Aspirin) 325 Mg Tab, 325 MG PO DAILY for 30 Days, MG 11/07/14 Home Meds Home medications reviewed. Current Medications Current Medications Medications (Trade) Dose Ordered Sig/Macho Route PRN Reason Start Time Stop Time Status Last Admin Empaglifozin (Jardiance) 10 mg DAILY PO 05/21/25 10:00 Metoprolol Succinate (Toprol Xl) 25 mg DAILY PO 05/21/25 10:00 Sacubitril/ Valsartan (Entresto 24-26 Mg tab) 1 tab BID PO 05/20/25 22:00 Spironolactone (Aldactone) 25 mg DAILY PO 05/21/25 10:00 Review of Systems Constitutional: Generalized weakness Ears, Nose, & Throat: No symptom reported Eyes: No symptom reported Neurological: Dizziness Pulmonary/Respiratory: No symptoms reported Cardiovascular: No symptom reported Gastrointestinal: No symptom reported Genitourinary: No symptom reported Musculoskeletal: No symptom reported Skin: No symptom reported Psychiatric: No symptom reported Endocrine: No symptom reported Hematologic/Lymphatic: No symptom reported Vital Signs Vital Signs Date Time Temp Pulse Resp B/P (MAP) Pulse Ox O2 Delivery O2 Flow Rate FiO2 05/20/25 09:48 106 113/88 05/20/25 09:00 97.4 18 95 97.4 05/19/25 20:00 Room Air* 0 21 Physical Exam General Appearance: Cooperative. Obese Pulmonary/Respiratory: Clear, bilateral breaths sounds. Cardiovascular/Chest: Regular rate and rhythm. Peripheral Pulses: 2+ Radial (R). 2+ Radial (L). 2+ Pedal (R). 2+ Pedal (L) Abdominal Exam: Normal bowel sounds. Ankle Exam: Negative ankle edema Lower extremities: Negative lower extremity edema Neuro/Mental Status: A/OX4, coherent. Thoughts/Psych: Normal thought pattern. Appropriate mood and affect. Good judgment and insight. Appearance: No acute distress. Skin Exam: Normal inspection. Normal color. Warm and dry. Labs/Diagnostic Data Labs Test 05/20/25 12:05 05/20/25 09:03 05/18/25 04:33 05/17/25 21:43 Range/Units POC Glucose 197 H 70-106 mg/dl White Blood Count 7.4 4.4-10.8 10^3/uL Red Blood Count 4.89 4.5-5.90 10^6/uL Hemoglobin 14.4 13.5-17.5 g/dL Hematocrit 43.0 41.0-53.0 % Mean Corpuscular Volume 87.9 80.0-100.0 fL Mean Corpuscular Hemoglobin 29.5 28.0-32.0 pg Mean Corpuscular Hemoglobin Concent 33.6 32.0-36.0 g/dL Red Cell Distribution Width 14.6 H 11.8-14.3 % Platelet Count 246 140-450 10^3/uL Mean Platelet Volume 8.0 6.9-10.8 fL Neutrophils (%) (Auto) 75.8 37.0-80.0 % Lymphocytes (%) (Auto) 15.9 10.0-50.0 % Monocytes (%) (Auto) 7.3 0.0-12.0 % Eosinophils (%) (Auto) 0.4 0.0-7.0 % Basophils (%) (Auto) 0.6 0.0-2.0 % Neutrophils # (Auto) 5.6 1.6-8.6 10 ^3/uL Lymphocytes # (Auto) 1.2 0.4-5.4 10 ^3/uL Monocytes # (Auto) 0.5 0-1.3 10 ^3/uL Eosinophils # (Auto) 0 0-0.8 10 ^3/uL Basophils # (Auto) 0 0-0.2 10 ^3/uL Nucleated Red Blood Cells 0.0 % Sodium Level 141 # 136-145 mmol/L Potassium Level 3.8 3.5-5.1 mmol/L Chloride Level 105 98-107 mmol/L Carbon Dioxide Level 25 20-31 mmol/L Anion Gap 11 5-15 Blood Urea Nitrogen 21 9-23 mg/dL Creatinine 1.22 0.700-1.30 mg/dL Glomerular Filtration Rate Calc 66 >90 mL/min BUN/Creatinine Ratio 17.2 10.0-20.0 Serum Glucose 167 H 74-106 mg/dL Calcium Level 9.0 8.7-10.4 mg/dL Magnesium Level 2.1 1.6-2.6 mg/dL Triglycerides Level 109 < 150 mg/dL Cholesterol Level 145 < 200 mg/dL LDL Cholesterol 73 < 100 mg/dL HDL Cholesterol 48 40-59 mg/dL Thyroid Stimulating Hormone (TSH) 0.96 0.55-4.78 uIU/mL Total Bilirubin 0.3 0.2-1.0 mg/dL Aspartate Amino Transferase (AST) 23 13-40 U/L Alanine Aminotransferase (ALT) 39 7-40 U/L Alkaline Phosphatase 74 46-116 U/L Total Protein 6.4 5.7-8.2 g/dL Albumin 3.9 3.2-4.8 g/dL Troponin I High Sensitivity 23 </=54 ng/L Test 05/17/25 18:50 Range/Units B-Type Natriuretic Peptide 504.18 0-100 pg/mL Assessment Sustained ventricular tachycardia with ICD shock Chronic HFrEF, NYHA class II Coronary artery disease status post PTCA x 7 MINA (on ASA) Ischemic cardiomyopathy History myocardial infarction Presence of ICD (Phillips) Prolonged QTc interval Mild to moderate mitral valve regurgitation Hepatitis-C History of methamphetamine abuse Obesity Plan/Recommendation We will continue with the following plan/recommendations (Dr. Bray): Case reviewed and discussed with . A transthoracic echocardiogram rev eals an EF of 20-25% with basal inferolateral wall aneurysm formation noted. A ICD interrogation was done and revealed the patient had two shocks delivered. The patient also noted to have multiple episodes of V-tach. Given this information, we will recommend for the patient to undergo a coronary angiogram with left heart catheterization to rule out ischemia.The procedure was discussed with the patient in full detail including risks and benefits. Risks include but are not limited to bleeding, contrast-induced nephropathy, coronary dissection, stroke, and even . The patient understands and is agreeable to undergo the procedure. We will schedule the patient at soonest availability on 05/21/2025. In the meantime, continue with close cardiac surveillance. Restart patient's antiarrhythmic agent mexiletine. Avoid medications that prolong QTC interval----hold patients home dose amiodarone given prolonged QTc. In the event that the patient sustains V-tach, consider initiating a lidocaine drip and transferring to ICU. Continue with the single antiplatelet therapy and lipid- lowering agent. Thank you for allowing us to care for this patient. Please call with any questions or concerns. Critical care time spent: 44 minutes This medical document was created using an electronic medical record system with voice recognition software and computerized dictation system. Although this document has been carefully reviewed, there might still be some phonetic and typographical errors. Occasional wrong-word or ``sound-alike substitutions may have occurred due to the inherent limitations of voice recognition software. These areas are purely typographical due to imperfections of the software programs and do not reflect any compromise in the patient's medical care. Please read the chart carefully and recognize, using context, where these substitutions have occurred. Plan discussed with: Patient NYHA Physical activity limitations: Class2(Slight)fatigue,sob (palpitatns, angina w activityv) Date of Service: May 20, 2025 Billing Provider: JOS MANRIQUE Cardiology Common Codes: [id number] INP/OBS CARE (High) Cardiology Consultation Codes: [id number] CONSULT <45MIN JOS MANRIQUE May 20, 2025 14:13
--- NOTE | 2025-05-20 14:28 | ECG ---
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
[2025-05-20] MEDS: SACUBITRIL-VALSARTAN 24mg/26mg TAB PO ONE (15:45)
[2025-05-20] MEDS: SPIRONOLACTONE 25 MG TAB PO ONE (15:45)
[2025-05-20] MEDS: EMPAGLIFLOZIN 10 MG TAB PO ONE (15:45)
--- NOTE | 2025-05-20 17:43 | DVHPN2 ---
Subjective No chest pain Reviewed: H&P Changes from previous H/P or p: No Changes Eyes: No Pain, No Vision change, No Conjunctivae inflammation, No Eyelid inflammation, No Other, No Redness ENT: No Ear pain, No Ear discharge, No Nose pain, No Nose discharge, No Nose congestion, No Mouth pain, No Mouth swelling, No Throat pain, No Throat swelling, No Other Cardiovascular: Chest Pain; No Palpitations, No Orthopnea, No Paroxysmal Noc. Dyspnea, No Edema; Lt Headedness, Other (Diaphoresis) Respiratory: No Cough, No Dry; Shortness of breath; No SOB with excertion, No Wheezing, No Hemoptysis, No Pleuritic Pain, No Sputum, No Other Gastrointestinal: No Nausea, No Vomiting, No Abdominal Pain, No Diarrhea, No Constipation, No Melena, No Hematochezia, No Other Genitourinary: No Dysuria, No Frequency, No Incontinence, No Hematuria, No Retention, No Other Musculoskeletal: No other, No neck pain, No shoulder pain, No arm pain, No back pain, No hand pain, No leg pain, No foot pain Skin: No Rash, No Lesions, No Jaundice, No Bruising, No Other Objective Vitals Vital Signs Date Time Temp Pulse Resp B/P (MAP) Pulse Ox O2 Delivery O2 Flow Rate FiO2 05/20/25 16:28 97.2 114 18 114/76 (89) 97 97.2 05/20/25 07:30 Room Air* 0 21 Intake/Output Intake and Output 05/20/25 05:00 Intake Total 1050 ml Output Total 2550 ml Balance -1500 ml Intake Oral 1000 ml IV Total 50 ml Output Urine Total 2550 ml General Appearance: Alert, Oriented X3 HEENT: Atraumatic Lungs: Clear to auscultation Cardiovascular: Regular rate, Normal S1, Normal S2 Abdomen: Normal bowel sounds Medications Current Medications Medications Dose Ordered Sig/Macho Route Start Time Stop Time Status Last Admin Dose Admin Aspirin 81 mg DAILY PO 05/18/25 10:00 05/20/25 09:48 81 MG Atorvastatin Calcium 10 mg HS PO 05/17/25 22:00 05/19/25 22:07 10 MG Ceftriaxone Sodium 50 ml @ 100 mls/hr DAILY@09 IV 05/18/25 09:00 05/20/25 09:00 100 MLS/HR Azithromycin 250 ml @ 125 mls/hr Q24H IV 05/18/25 21:00 Hold Furosemide 40 mg DAILY IV 05/18/25 10:00 05/19/25 11:57 40 MG Diagnostic Test (Pha) 1 strip Q6HR 05/18/25 00:00 05/20/25 12:21 1 STRIP Insulin Human Regular Q6HR SC 05/18/25 00:00 05/20/25 12:21 3 UNITS Dextrose 50 ml UD PRN IV 05/17/25 21:30 Sodium Chloride 10 ml Q8HR IV 05/17/25 22:00 05/20/25 14:00 10 ML Acetaminophen/ Hydrocodone Bitart 1 tab Q4HP PRN PO 05/17/25 21:30 05/19/25 20:43 1 TAB Ondansetron HCl 4 mg Q4HP PRN IV 05/17/25 21:30 Docusate Sodium 100 mg BIDPRN PRN PO 05/17/25 21:30 05/17/25 22:40 100 MG Acetaminophen 650 mg Q6HP PRN PO 05/17/25 21:30 05/17/25 22:40 650 MG Nitroglycerin 0.4 mg Q5MINP PRN SL 05/17/25 21:30 Morphine Sulfate 2 mg Q30M PRN IV 05/17/25 21:30 Empaglifozin 10 mg DAILY PO 05/21/25 10:00 Metoprolol Succinate 25 mg DAILY PO 05/21/25 10:00 Sacubitril/ Valsartan 1 tab BID PO 05/20/25 22:00 Spironolactone 25 mg DAILY PO 05/21/25 10:00 Laboratory Results Laboratory Tests 05/20/25 09:03 Chemistry Test 05/20/25 09:03 Calcium Level 9.0 mg/dL (8.7-10.4) Magnesium Level 2.1 mg/dL (1.6-2.6) Lipid panel Test 05/20/25 09:03 Cholesterol Level 145 mg/dL (< 200) HDL Cholesterol 48 mg/dL (40-59) Triglycerides Level 109 mg/dL (< 150) HgA1c, TSH Test 05/20/25 09:03 Thyroid Stimulating Hormone (TSH) 0.96 uIU/mL (0.55-4.78) Assessment/Plan Assessment/Plan (1) Acute coronary syndrome (2) Hypotension (3) AICD discharge (4) Pneumonia, unspecified organism (5) Acute renal injury (6) Uncontrolled diabetes mellitus (7) Hyperglycemia due to type 2 diabetes mellitus (8) Acute exacerbation of congestive heart failure Continue IV abx echo cardiogram reviewed IVF Pending cardiology consult Plan discussed with: Patient Date of Service: May 20, 2025 Billing Provider: BIRD DAVEY MD Common Visit Codes: [id number] INP/OBS CARE(HIGH) BIRD DAVEY MD May 20, 2025 17:43
[2025-05-20] MEDS: MEXILETINE HYDROCHLORIDE 150 MG CAP PO SCH (22:10)
[2025-05-20] MEDS: SACUBITRIL-VALSARTAN 24mg/26mg TAB PO SCH (22:11)
[2025-05-21] VITALS (11 sets, daily range): BP systolic 92–118; BP diastolic 50–97; PULSE 105–118; RESP 17–19; TEMP 97.4–98; O2SAT 94–98
[2025-05-21 06:37] LABS: Anion Gap 12 (5-15); Carbon Dioxide 25 mmol/L (20-31); Potassium 4.4 mmol/L (3.5-5.1); Sodium 145 mmol/L (136-145)
[2025-05-21 06:38] LABS: Calcium 9.3 mg/dL (8.7-10.4); Hematocrit 41.4 % (41.0-53.0); Hemoglobin 14.3 g/dL (13.5-17.5); Mean Corpuscular Hemoglobin 30.2 pg (28.0-32.0); Mean Corpuscular Volume 87.6 fL (80.0-100.0); Nucleated Red Blood Cells % 0.1 %
[2025-05-21 06:39] LABS: Chloride 108 mmol/L (98-107)
[2025-05-21 06:39] LABS: Urine Protein, UAD Negative (Negative)
[2025-05-21 06:43] LABS: BUN/Creatinine Ratio 14.2 (10.0-20.0); Blood Urea Nitrogen 19 mg/dL (9-23)
[2025-05-21 06:48] LABS: Glucose 160 mg/dL (74-106)
[2025-05-21] MEDS: EMPAGLIFLOZIN 10 MG TAB PO SCH (09:20)
[2025-05-21] MEDS: SPIRONOLACTONE 25 MG TAB PO SCH (09:21)
[2025-05-21] MEDS: METOPROLOL SUCCINATE XL 50 MG TAB PO SCH (10:00)
[2025-05-21] MEDS: IODIXANOL 320MG/ML 100ML BTL IV ONE (12:02)
[2025-05-21] MEDS: LIDOCAINE 2%HCL (LOCAL ANESTH.) INJ 20ML MDV ONE (12:16)
[2025-05-21] MEDS: VERAPAMIL 2.5MG/ML INJ 2ML VIAL IV ONE (12:19)
[2025-05-21] MEDS: HEPARIN SODIUM (PORCINE) 5000 UNITS/ML 1ML VIAL ONE (12:19)
[2025-05-21] MEDS: ANGIOMAX 250 MG VIAL IV ONE (12:26)
[2025-05-21] MEDS: SODIUM CHL 0.9% 0 ML ONE (12:26)
[2025-05-21] MEDS: fentaNYL CITRATE 100 MCG/2 ML VL ONE (12:26)
[2025-05-21] MEDS: MIDAZOLAM HCL 2MG/2ML 2ml VIAL (1mg/ml) ONE (12:26)
--- NOTE | 2025-05-21 15:03 | DVHPN2 ---
Subjective No chest pain Reviewed: H&P Changes from previous H/P or p: No Changes Eyes: No Pain, No Vision change, No Conjunctivae inflammation, No Eyelid inflammation, No Other, No Redness ENT: No Ear pain, No Ear discharge, No Nose pain, No Nose discharge, No Nose congestion, No Mouth pain, No Mouth swelling, No Throat pain, No Throat swelling, No Other Cardiovascular: Chest Pain; No Palpitations, No Orthopnea, No Paroxysmal Noc. Dyspnea, No Edema; Lt Headedness, Other (Diaphoresis) Respiratory: No Cough, No Dry; Shortness of breath; No SOB with excertion, No Wheezing, No Hemoptysis, No Pleuritic Pain, No Sputum, No Other Gastrointestinal: No Nausea, No Vomiting, No Abdominal Pain, No Diarrhea, No Constipation, No Melena, No Hematochezia, No Other Genitourinary: No Dysuria, No Frequency, No Incontinence, No Hematuria, No Retention, No Other Musculoskeletal: No other, No neck pain, No shoulder pain, No arm pain, No back pain, No hand pain, No leg pain, No foot pain Skin: No Rash, No Lesions, No Jaundice, No Bruising, No Other Objective Vitals Vital Signs Date Time Temp Pulse Resp B/P (MAP) Pulse Ox O2 Delivery O2 Flow Rate FiO2 05/21/25 13:50 116 19 110/74 (86) 98 05/21/25 13:05 97.8 97.8 05/21/25 08:00 Room Air* 0 21 Intake/Output Intake and Output 05/21/25 07:00 Intake Total 1590 ml Output Total 1630 ml Balance -40 ml Intake Oral 1540 ml IV Total 50 ml Output Urine Total 1630 ml General Appearance: Alert, Oriented X3 HEENT: Atraumatic Lungs: Clear to auscultation Cardiovascular: Regular rate, Normal S1, Normal S2 Abdomen: Normal bowel sounds Medications Current Medications Medications Dose Ordered Sig/Macho Route Start Time Stop Time Status Last Admin Dose Admin Aspirin 81 mg DAILY PO 05/18/25 10:00 05/20/25 09:48 81 MG Atorvastatin Calcium 10 mg HS PO 05/17/25 22:00 05/20/25 22:10 10 MG Ceftriaxone Sodium 50 ml @ 100 mls/hr DAILY@09 IV 05/18/25 09:00 05/21/25 09:21 100 MLS/HR Azithromycin 250 ml @ 125 mls/hr Q24H IV 05/18/25 21:00 Hold Furosemide 40 mg DAILY IV 05/18/25 10:00 05/19/25 11:57 40 MG Diagnostic Test (Pha) 1 strip Q6HR 05/18/25 00:00 05/21/25 06:00 1 STRIP Insulin Human Regular Q6HR SC 05/18/25 00:00 05/21/25 06:43 2 UNITS Dextrose 50 ml UD PRN IV 05/17/25 21:30 Sodium Chloride 10 ml Q8HR IV 05/17/25 22:00 05/21/25 05:42 10 ML Acetaminophen/ Hydrocodone Bitart 1 tab Q4HP PRN PO 05/17/25 21:30 05/19/25 20:43 1 TAB Ondansetron HCl 4 mg Q4HP PRN IV 05/17/25 21:30 Docusate Sodium 100 mg BIDPRN PRN PO 05/17/25 21:30 05/17/25 22:40 100 MG Acetaminophen 650 mg Q6HP PRN PO 05/17/25 21:30 05/17/25 22:40 650 MG Nitroglycerin 0.4 mg Q5MINP PRN SL 05/17/25 21:30 Morphine Sulfate 2 mg Q30M PRN IV 05/17/25 21:30 Empaglifozin 10 mg DAILY PO 05/21/25 10:00 05/21/25 09:20 10 MG Metoprolol Succinate 25 mg DAILY PO 05/21/25 10:00 Sacubitril/ Valsartan 1 tab BID PO 05/20/25 22:00 05/21/25 09:20 1 TAB Spironolactone 25 mg DAILY PO 05/21/25 10:00 Mexiletine HCl 150 mg Q8HR PO 05/20/25 22:00 05/21/25 14:58 150 MG Magnesium Oxide 400 mg BID PO 05/21/25 22:00 Laboratory Results Laboratory Tests 05/21/25 05:20 Chemistry Test 05/21/25 05:20 Calcium Level 9.3 mg/dL (8.7-10.4) Urinalysis Test 05/21/25 04:30 Urine Color Light-yellow (Yellow) Urine Clarity Clear (Clear) Urine pH 5.5 (5.0-9.0) Urine Specific [place] 1.018 (1.001-1.035) Urine Protein Negative (Negative) Urine Ketones Negative (Negative) Urine Blood Negative /uL (Negative) Urine Nitrite Negative (Negative) Urine Bilirubin Negative (Negative) Urine Urobilinogen Normal mg/dL (Negative) Urine Leukocyte Esterase Negative /uL (Negative) Urine RBC None seen /hpf (0 - 3) Urine Microscopic WBC < 1 /HPF (0-3) Urine Squamous Epithelial Cells Few /hpf (<5) Urine Bacteria None seen /hpf (None Seen) Urine Glucose 4+ mg/dL (Normal) H Assessment/Plan Assessment/Plan (1) Acute coronary syndrome (2) Hypotension (3) AICD discharge (4) Pneumonia, unspecified organism (5) Acute renal injury (6) Uncontrolled diabetes mellitus (7) Hyperglycemia due to type 2 diabetes mellitus (8) Acute exacerbation of congestive heart failure Continue IV abx echo cardiogram reviewed IVF Going for cath today per cardiology Plan discussed with: Patient Date of Service: May 21, 2025 Billing Provider: BIRD DAVEY MD Common Visit Codes: [id number] INP/OBS CARE(HIGH) BIRD DAVEY MD May 21, 2025 15:03
--- NOTE | 2025-05-21 15:44 | DVHOP2 ---
Operative Report - 2 Report Details Date: 05/21/25 Preop Diagnosis: Cardiomyopathy. Ventricular dysrhythmias Postop Diagnosis: Cardiomyopathy, coronary artery disease. Surgeon: Pepper Bray MD Anesthesiologist: Conscious sedation Anesthesia: Mac, Local Consent: The patient was informed of the risks and benefits of the procedure. These include but are not limited to complications of anesthesia, postoperative infection, incomplete relief of symptoms, recurrence of symptoms, damage to blood vessels, nerves and tendons, deep venous thrombosis, pulmonary embolism and possible need for repeat surgery in the future. Complications: No complications Findings: Cardiomyopathy. CAD. Indications for Surgery: Ventricular dysrhythmias Name of Procedure Performed Left heart catheterization bilateral cine coronary angiography. Left ventriculography. Procedure Details Procedure Details: Prior local anesthesia with 2% lidocaine to the right wrist and full informed consent obtained the patient was prepped and draped in the usual fashion followed by placement of a six Macanese sheath into the right radial artery through which six Macanese Sheng catheter was used for ventriculography and cannulation of both right and left coronary ostia. No complications Hemodynamics: Aortic blood pressure was 110/70 end-diastolic pressure was 19. There was no gradient across the aortic valve on pullback. Coronary anatomy: The RCA is 100% occluded. Left main is large and normal. Left anterior descending is large with mild plaquing. No critical lesions in its proximal mid or distal segments. Diagonals are free of significant disease. The circumflex is large with two marginals free of significant disease Ventriculography in the ROBBINS projection shows an EF of about 30% with an enlarged left ventricle and global hypokinesis Impression: Elevated left ventricular end-diastolic pressure at rest with decreased left ventricular ejection fraction. Coronary artery disease as noted above with an occluded RCA and mild disease of the circumflex. Recommendations: Medical therapy is warranted continue risk factor modifica tions. Condition Fair Disposition Still a Patient Date of Service: May 21, 2025 Billing Provider: PEPPER BRAY Sr., MD Cardiology Common Codes: [id number] INP/OBS CARE (High) Cardiology Procedure Codes: [id number] HEART CATH W/INTRA INJ PEPPER BRAY Sr., MD May 21, 2025 15:44
[2025-05-21] MEDS: MAGNESIUM OXIDE 400 MG TAB PO SCH (21:42)
[2025-05-22] VITALS (8 sets, daily range): BP systolic 99–124; BP diastolic 62–89; PULSE 66–115; RESP 18–20; TEMP 97–98.1; O2SAT 95–99
[2025-05-22 07:19] LABS: Calcium 9.1 mg/dL (8.7-10.4); Potassium 4.8 mmol/L (3.5-5.1); Sodium 143 mmol/L (136-145)
[2025-05-22 07:20] LABS: Anion Gap 9 (5-15); Carbon Dioxide 26 mmol/L (20-31)
[2025-05-22 07:25] LABS: BUN/Creatinine Ratio 13.6 (10.0-20.0); Blood Urea Nitrogen 19 mg/dL (9-23); Chloride 108 mmol/L (98-107)
[2025-05-22 07:26] LABS: Magnesium 2.6 mg/dL (1.6-2.6)
[2025-05-22 07:33] LABS: Glucose 138 mg/dL (74-106)
--- NOTE | 2025-05-22 14:04 | DVHINCON2 ---
Date of service: May 22, 2025 History of Present Illness This is a 65-year old male who initially presented with reported dizziness that had began on the day of initial presentation prompting further medical kathleen luation. Patient reports he was being driven to the ED by his which he had felt a shock delivered by his AICD. Upon ED arrival, initial 12-lead electrocardiogram had reported junctional tachycardia at 103bpm with a QTC internal of 604 milliseconds which patient does report history of Amiodarone/Mexiletine use on an outpatient basis. Of note patient does have underlying history of ischemic cardiomyopathy and is status post previous SJM/Phillips AICD implantation which subsequent device interrogation had revealed evidence for sustained ventricular tachycardia that had degenerated to ventricular fibrillation resulting in an appropriate shock delivered by AICD corroborating with patient story. Interrogation had further revealed intermittent episodes of non-sustained ventricular tachycardia. Electrolytes (magnesium/potassium) were found within normal ranges. 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 Due to the above, patient had underwent subsequent cardiac catheterization revealing presence of an occluded RCA and mild disease involving the circumflex which decision had been made by Interventional Cardiology services to proceed with conservative management. Of note, patient does report he is managed by Dr. Parrish at [facility] [place]. Currently denies any active chest pain, shortness of breath, palpitations, syncope, or any further cardiac related symptoms. Electrophysiology services were subsequently involved by Interventional Cardiology request for EP aspects of care. Past medical history includes coronary artery disease status post previous PCI's, ischemic cardiomyopathy, status post SJM/Phillips AICD implantation, hypertension, hyperlipidemia, hepatitis C, and obesity Echocardiogram: Conclusion lvef 20-25% dilated LV basal inferolateral wall aneurysm formation noted RV not well seen left atrium enlarged mild to moderate mitral regurg Cardiac Catheterization: Impression: Elevated left ventricular end-diastolic pressure at rest with decreased left ventricular ejection fraction. Coronary artery disease as noted above with an occluded RCA and mild disease of the cir cumflex. Recommendations: Medical therapy is warranted continue risk factor modifications. Past Medical History Reviewed Past Surgical History Reviewed Family History: Family history: Cardiovascular disease G8 MOTHER G8 FATHER Family history: Diabetes mellitus G8 BROTHER Allergies: Coded Allergies: NO KNOWN ALLERGIES (Unverified , 11/07/14) Home Meds Reported Medications Insulin Glargine (Lantus) 100 Units/Ml Vial, #10 06/29/15 Doxycycline Hyclate (Doxycycline Hyclate) 100 Mg Cap, #28 06/29/15 Sulfamethoxazole W/Trimethopri (Sulfamethoxazole/Trimetho) 1 Tab Tab, #28 06/29/15 Atorvastatin Calcium (ATORVASTATIN CALCIUM) 10 Mg Tab, #30 06/29/15 Ibuprofen (Ibuprofen) 800 Mg Tab, #30 06/29/15 [Hydrocodon-Acetaminophn] No Conflict Check, #30 06/29/15 Carvedilol (Carvedilol) 6.25 Mg Tab, #60 06/29/15 Lisinopril (Lisinopril) 5 Mg Tab, #30 06/29/15 Metformin Hydrochloride (Metformin Hcl) 500 Mg Tab, 500 MG PO DAILY for 30 Days, MG 11/07/14 Furosemide (Furosemide) 40 Mg Tab, 40 MG PO DAILY for 30 Days 11/07/14 Aspirin (Aspirin) 325 Mg Tab, 325 MG PO DAILY for 30 Days, MG 11/07/14 Current Medications Current Medications Medications (Trade) Dose Ordered Sig/Macho Route PRN Reason Start Time Stop Time Status Last Admin Magnesium Oxide (Mag-Ox Tablet) 400 mg BID PO 05/21/25 22:00 05/22/25 10:10 Review of Systems A 14-point review of systems is negative unless otherwise noted above Vital Signs Vital Signs Date Time Temp Pulse Resp B/P (MAP) Pulse Ox O2 Delivery O2 Flow Rate FiO2 05/22/25 13:00 97.2 109 18 102/73 (83) 95 97.2 05/22/25 08:00 Room Air* 0 21 Physical Exam Heart: S1 and S2 regular. The patient is in sinus rhythm. Lungs: Scattered rhonchi. Abdomen: Benign. Extremities: Distal pulses palpable, 2+. Mild bilateral peripheral edema Labs/Diagnostic Data Labs Test 05/22/25 12:09 05/22/25 05:52 05/21/25 05:20 05/21/25 04:30 Range/Units POC Glucose 172 H 70-106 mg/dl Sodium Level 143 136-145 mmol/L Potassium Level 4.8 3.5-5.1 mmol/L Chloride Level 108 H 98-107 mmol/L Carbon Dioxide Level 26 20-31 mmol/L Anion Gap 9 5-15 Blood Urea Nitrogen 19 9-23 mg/dL Creatinine 1.40 H 0.700-1.30 mg/dL Glomerular Filtration Rate Calc 56 >90 mL/min BUN/Creatinine Ratio 13.6 10.0-20.0 Serum Glucose 138 H 74-106 mg/dL Calcium Level 9.1 8.7-10.4 mg/dL Magnesium Level 2.6 1.6-2.6 mg/dL White Blood Count 6.2 4.4-10.8 10^3/uL Red Blood Count 4.72 4.5-5.90 10^6/uL Hemoglobin 14.3 13.5-17.5 g/dL Hematocrit 41.4 41.0-53.0 % Mean Corpuscular Volume 87.6 80.0-100.0 fL Mean Corpuscular Hemoglobin 30.2 28.0-32.0 pg Mean Corpuscular Hemoglobin Concent 34.5 32.0-36.0 g/dL Red Cell Distribution Width 14.7 H 11.8-14.3 % Platelet Count 228 140-450 10^3/uL Mean Platelet Volume 8.2 6.9-10.8 fL Neutrophils (%) (Auto) 61.9 37.0-80.0 % Lymphocytes (%) (Auto) 25.5 10.0-50.0 % Monocytes (%) (Auto) 10.2 0.0-12.0 % Eosinophils (%) (Auto) 1.7 0.0-7.0 % Basophils (%) (Auto) 0.7 0.0-2.0 % Neutrophils # (Auto) 3.8 1.6-8.6 10 ^3/uL Lymphocytes # (Auto) 1.6 0.4-5.4 10 ^3/uL Monocytes # (Auto) 0.6 0-1.3 10 ^3/uL Eosinophils # (Auto) 0.1 0-0.8 10 ^3/uL Basophils # (Auto) 0 0-0.2 10 ^3/uL Nucleated Red Blood Cells 0.1 % Urine Color Light-yellow Yellow Urine Clarity Clear Clear Urine pH 5.5 5.0-9.0 Urine Specific [place] 1.018 1.001-1.035 Urine Protein Negative Negative Urine Ketones Negative Negative Urine Blood Negative Negative /uL Urine Nitrite Negative Negative Urine Bilirubin Negative Negative Urine Urobilinogen Normal Negative mg/dL Urine Leukocyte Esterase Negative Negative /uL Urine RBC None seen 0 - 3 /hpf Urine Microscopic WBC < 1 0-3 /HPF Urine Squamous Epithelial Cells Few <5 /hpf Urine Bacteria None seen None Seen /hpf Urine Glucose 4+ H Normal mg/dL Test 05/20/25 09:03 05/18/25 04:33 05/17/25 21:43 05/17/25 18:50 Range/Units Triglycerides Level 109 < 150 mg/dL Cholesterol Level 145 < 200 mg/dL LDL Cholesterol 73 < 100 mg/dL HDL Cholesterol 48 40-59 mg/dL Thyroid Stimulating Hormone (TSH) 0.96 0.55-4.78 uIU/mL Total Bilirubin 0.3 0.2-1.0 mg/dL Aspartate Amino Transferase (AST) 23 13-40 U/L Alanine Aminotransferase (ALT) 39 7-40 U/L Alkaline Phosphatase 74 46-116 U/L Total Protein 6.4 5.7-8.2 g/dL Albumin 3.9 3.2-4.8 g/dL Troponin I High Sensitivity 23 </=54 ng/L B-Type Natriuretic Peptide 504.18 0-100 pg/mL Plan/Recommendation This is a 65-year old male who initially presented with reported dizziness that had began on the day of initial presentation prompting further medical evaluation. Patient reports he was being driven to the ED by his which he had felt a shock delivered by his AICD. Upon ED arrival, initial 12-lead electrocardiogram had reported junctional tachycardia at 103bpm with a QTC internal of 604 milliseconds which patient does report history of Amiodarone/Mexiletine use on an outpatient basis. Of note patient does have underlying history of ischemic cardiomyopathy and is status post previous SJM/Phillips AICD implantation which subsequent device interrogation had revealed evidence for sustained ventricular tachycardia that had degenerated to ventricular fibrillation resulting in an appropriate shock delivered by AICD corroborating with patient story. Interrogation had further revealed intermittent episodes of non-sustained ventricular tachycardia. Electrolytes (magnesium/potassium) were found within normal ranges. 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 Due to the above, patient had underwent subsequent cardiac catheterization revealing presence of an occluded RCA and mild disease involving the circumflex which decision had been made by Interventional Cardiology services to proceed with conservative management. Of note, patient does report he is managed by Dr. Parrish at [facility] [place]. Currently denies any active chest pain, shortness of breath, palpitations, syncope, or any further cardiac related symptoms. Electrophysiology services were subsequently involved by Interventional Cardiology request for EP aspects of care. Past medical history includes coronary artery disease status post previous PCI's, ischemic cardiomyopathy, status post SJM/Phillips AICD implantation, hypertension, hyperlipidemia, hepatitis C, and obesity Echocardiogram: Conclusion lvef 20-25% dilated LV basal inferolateral wall aneurysm formation noted RV not well seen left atrium enlarged mild to moderate mitral regurg Cardiac Catheterization: Impression: Elevated left ventricular end-diastolic pressure at rest with decreased left ventricular ejection fraction. Coronary artery disease as noted above with an occluded RCA and mild disease of the circumflex. Recommendations: Medical therapy is warranted continue risk factor modifications. 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 Had been found to have evidence for prolonged QTC interval > 600 milliseconds on outpatient Amiodarone therapy with notable intermittent ventricular pacing which could have attribute to underlying QT prolongation. Electrolytes (magnesium/potassium) were found within normal ranges. Did undergo subsequent cardiac catheterization revealing no warranted coronary revascularization. 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 Recognizing the above, agree with discontinuation of previous Amiodarone therapy given evidence for QTC prolongation > 600 milliseconds. 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 Recommendation during the interim is to proceed with conservative management. Recommend titering Mexiletine to 300mg three time daily. Recognizing soft/marginal blood pressures, recommend holding Entresto/Aldactone (for now) to maximizing beta-leo therapy as hemodynamics permit. To sustain potassium levels greater than 4.0. To sustain magnesium levels greater than 2.0. To proceed with optimized medical therapy an aggressive risk factor modification. Avoidance of QTC prolonging agents is advised. Remainder of cardiac management as per Interventional Cardiology services. Proceed with close rate and rhythm surveillance Proceed with close hemodynamic surveillance Proceed with optimized blood pressure control Transfuse to sustain HGB level above 9.0 Sustain Magnesium level greater than 2.0 Sustain Potassium level greater than 4.0 Follow up renal function and electrolytes Management in telemetry Follow up cognos consultant recommendations All available diagnostic labs, EKG's, and images were personally reviewed Patient's status, findings, and plan of care was reviewed and discussed with supervising physician Dr. Brock, who is in agreement with current plan of care. Plan of care discussed with and agreed upon by patient / primary RN Prognosis: Guarded Thank you for allowing me to participate in the care of this patient. Further recommendations based on patients clinical course and progression, primary attending, and other consultants. Will continue to follow with primary attending. If you have any questions or concerns, please do not hesitate to contact me. A total of 75 minutes was spent reviewing the patient record, examining the patient, making a diagnostic and therapeutic plan, discussing this plan with medical personnel, following up on diagnostic studies and following the patient for clinical stability excluding any and all procedures. At least 50% of this time was spent in direct, [id number] contact. Plan discussed with: Patient (patient and primary rn ) MARKEL TRIINDAD May 22, 2025 14:04
--- NOTE | 2025-05-22 15:50 | DVHPN2 ---
Subjective No chest pain Reviewed: H&P Changes from previous H/P or p: No Changes Eyes: No Pain, No Vision change, No Conjunctivae inflammation, No Eyelid inflammation, No Other, No Redness ENT: No Ear pain, No Ear discharge, No Nose pain, No Nose discharge, No Nose congestion, No Mouth pain, No Mouth swelling, No Throat pain, No Throat swelling, No Other Cardiovascular: Chest Pain; No Palpitations, No Orthopnea, No Paroxysmal Noc. Dyspnea, No Edema; Lt Headedness, Other (Diaphoresis) Respiratory: No Cough, No Dry; Shortness of breath; No SOB with excertion, No Wheezing, No Hemoptysis, No Pleuritic Pain, No Sputum, No Other Gastrointestinal: No Nausea, No Vomiting, No Abdominal Pain, No Diarrhea, No Constipation, No Melena, No Hematochezia, No Other Genitourinary: No Dysuria, No Frequency, No Incontinence, No Hematuria, No Retention, No Other Musculoskeletal: No other, No neck pain, No shoulder pain, No arm pain, No back pain, No hand pain, No leg pain, No foot pain Skin: No Rash, No Lesions, No Jaundice, No Bruising, No Other Objective Vitals Vital Signs Date Time Temp Pulse Resp B/P (MAP) Pulse Ox O2 Delivery O2 Flow Rate FiO2 05/22/25 13:00 97.2 109 18 102/73 (83) 95 97.2 05/22/25 08:00 Room Air* 0 21 Intake/Output Intake and Output 05/22/25 05:00 Intake Total 900 ml Output Total 900 ml Balance 0 ml Intake Oral 850 ml IV Total 50 ml Output Urine Total 900 ml # Voids 4 General Appearance: Alert, Oriented X3 HEENT: Atraumatic Lungs: Clear to auscultation Cardiovascular: Regular rate, Normal S1, Normal S2 Abdomen: Normal bowel sounds Medications Current Medications Medications Dose Ordered Sig/Macho Route Start Time Stop Time Status Last Admin Dose Admin Aspirin 81 mg DAILY PO 05/18/25 10:00 05/22/25 10:10 81 MG Atorvastatin Calcium 10 mg HS PO 05/17/25 22:00 05/21/25 21:41 10 MG Ceftriaxone Sodium 50 ml @ 100 mls/hr DAILY@09 IV 05/18/25 09:00 05/22/25 09:12 100 MLS/HR Azithromycin 250 ml @ 125 mls/hr Q24H IV 05/18/25 21:00 Hold Furosemide 40 mg DAILY IV 05/18/25 10:00 05/22/25 10:10 40 MG Diagnostic Test (Pha) 1 strip Q6HR 05/18/25 00:00 05/22/25 12:19 1 STRIP Insulin Human Regular Q6HR SC 05/18/25 00:00 05/22/25 12:19 3 UNITS Dextrose 50 ml UD PRN IV 05/17/25 21:30 Sodium Chloride 10 ml Q8HR IV 05/17/25 22:00 05/22/25 13:53 10 ML Acetaminophen/ Hydrocodone Bitart 1 tab Q4HP PRN PO 05/17/25 21:30 05/19/25 20:43 1 TAB Ondansetron HCl 4 mg Q4HP PRN IV 05/17/25 21:30 Docusate Sodium 100 mg BIDPRN PRN PO 05/17/25 21:30 05/22/25 12:50 100 MG Acetaminophen 650 mg Q6HP PRN PO 05/17/25 21:30 05/17/25 22:40 650 MG Nitroglycerin 0.4 mg Q5MINP PRN SL 05/17/25 21:30 Morphine Sulfate 2 mg Q30M PRN IV 05/17/25 21:30 Empaglifozin 10 mg DAILY PO 05/21/25 10:00 05/22/25 10:12 10 MG Metoprolol Succinate 25 mg DAILY PO 05/21/25 10:00 05/22/25 10:12 25 MG Sacubitril/ Valsartan 1 tab BID PO 05/20/25 22:00 05/22/25 11:35 1 TAB Spironolactone 25 mg DAILY PO 05/21/25 10:00 05/22/25 11:35 25 MG Mexiletine HCl 150 mg Q8HR PO 05/20/25 22:00 05/22/25 13:54 150 MG Magnesium Oxide 400 mg BID PO 05/21/25 22:00 05/22/25 10:10 400 MG Laboratory Results Laboratory Tests 05/21/25 05:20 05/22/25 05:52 Chemistry Test 05/22/25 05:52 Calcium Level 9.1 mg/dL (8.7-10.4) Magnesium Level 2.6 mg/dL (1.6-2.6) Urinalysis Test 05/21/25 04:30 Urine Color Light-yellow (Yellow) Urine Clarity Clear (Clear) Urine pH 5.5 (5.0-9.0) Urine Specific [place] 1.018 (1.001-1.035) Urine Protein Negative (Negative) Urine Ketones Negative (Negative) Urine Blood Negative /uL (Negative) Urine Nitrite Negative (Negative) Urine Bilirubin Negative (Negative) Urine Urobilinogen Normal mg/dL (Negative) Urine Leukocyte Esterase Negative /uL (Negative) Urine RBC None seen /hpf (0 - 3) Urine Microscopic WBC < 1 /HPF (0-3) Urine Squamous Epithelial Cells Few /hpf (<5) Urine Bacteria None seen /hpf (None Seen) Urine Glucose 4+ mg/dL (Normal) H Assessment/Plan Assessment/Plan (1) Acute coronary syndrome (2) Hypotension (3) AICD discharge (4) Pneumonia, unspecified organism (5) Acute renal injury (6) Uncontrolled diabetes mellitus (7) Hyperglycemia due to type 2 diabetes mellitus (8) Acute exacerbation of congestive heart failure Continue IV abx echo cardiogram reviewed IVF s/p cath stable lesions>medical treatment waiting on cardiology possible need for ablation Plan discussed with: Patient Date of Service: May 22, 2025 Billing Provider: BIRD DAVEY MD Common Visit Codes: [id number] INP/OBS CARE(HIGH) BIRD DAVEY MD May 22, 2025 15:50
--- NOTE | 2025-05-22 15:57 | ECG ---
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
[2025-05-22] MEDS: MEXILETINE HYDROCHLORIDE 150 MG CAP PO SCH (21:10)
[2025-05-22] MEDS: METOPROLOL TARTRATE 50 MG TAB PO SCH (21:10)
[2025-05-22] MEDS ORDERED: METOPROLOL SUCCINATE XL 50 MG TAB PO SCH (22:00)
[2025-05-23 01:00] VITALS: BP 110/66; PULSE 100; RESP 18; TEMP 97.9; O2SAT 96
[2025-05-23 04:56] VITALS: BP 107/64; PULSE 108; RESP 18; TEMP 98.2; O2SAT 99
--- NOTE | 2025-05-23 06:21 | DVHPN2 ---
Progress Note - Dictate Date Seen: May 23, 2025 Medical Necessity Reason Pt with a Central, PICC or Fol: No vital signs Vital Sign Date Time Temp Pulse Resp B/P (MAP) Pulse Ox O2 Delivery O2 Flow Rate FiO2 05/23/25 04:56 98.2 108 18 107/64 (78) 99 98.2 05/22/25 20:00 Room Air* 0 21 Total Intake and Output 05/22/25 05/22/25 05/23/25 15:00 23:00 07:00 Intake Total 50 ml 800 ml Output Total 1000 ml Balance 50 ml -200 ml medications Current Medications Medications Dose Ordered Sig/Macho Route Start Time Stop Time Status Last Admin Dose Admin Aspirin 81 mg DAILY PO 05/18/25 10:00 05/22/25 10:10 81 MG Atorvastatin Calcium 10 mg HS PO 05/17/25 22:00 05/22/25 21:10 10 MG Ceftriaxone Sodium 50 ml @ 100 mls/hr DAILY@09 IV 05/18/25 09:00 05/22/25 09:12 100 MLS/HR Azithromycin 250 ml @ 125 mls/hr Q24H IV 05/18/25 21:00 Hold Furosemide 40 mg DAILY IV 05/18/25 10:00 05/22/25 10:10 40 MG Diagnostic Test (Pha) 1 strip Q6HR 05/18/25 00:00 05/23/25 05:10 1 STRIP Insulin Human Regular Q6HR SC 05/18/25 00:00 05/23/25 05:40 2 UNITS Dextrose 50 ml UD PRN IV 05/17/25 21:30 Sodium Chloride 10 ml Q8HR IV 05/17/25 22:00 05/23/25 05:10 10 ML Acetaminophen/ Hydrocodone Bitart 1 tab Q4HP PRN PO 05/17/25 21:30 05/19/25 20:43 1 TAB Ondansetron HCl 4 mg Q4HP PRN IV 05/17/25 21:30 Docusate Sodium 100 mg BIDPRN PRN PO 05/17/25 21:30 05/22/25 12:50 100 MG Acetaminophen 650 mg Q6HP PRN PO 05/17/25 21:30 05/17/25 22:40 650 MG Nitroglycerin 0.4 mg Q5MINP PRN SL 05/17/25 21:30 Morphine Sulfate 2 mg Q30M PRN IV 05/17/25 21:30 Empaglifozin 10 mg DAILY PO 05/21/25 10:00 05/22/25 10:12 10 MG Magnesium Oxide 400 mg BID PO 05/21/25 22:00 05/22/25 21:10 400 MG Mexiletine HCl 300 mg Q8HR PO 05/22/25 22:00 05/22/25 21:10 300 MG Metoprolol Tartrate 50 mg BID PO 05/22/25 22:00 05/22/25 21:10 50 MG laboratory and microbiology Laboratory Tests 05/22/25 05:52 05/21/25 05:20 Test 05/22/25 05:52 Range/Units Serum Glucose 138 H 74-106 mg/dL Assessment/Plan Plan/Recommendation This is a 65-year old male who initially presented with reported dizziness that had began on the day of initial presentation prompting further medical evaluation. Patient reports he was being driven to the ED by his which he had felt a shock delivered by his AICD. Upon ED arrival, initial 12-lead electrocardiogram had reported junctional tachycardia at 103bpm with a QTC internal of 604 milliseconds which patient does report history of Amiodarone/Mexiletine use on an outpatient basis. Of note patient does have underlying history of ischemic cardiomyopathy and is status post previous SJM/Phillips AICD implantation which subsequent device interrogation had revealed evidence for sustained ventricular tachycardia that had degenerated to ventricular fibrillation resulting in an appropriate shock delivered by AICD corroborating with patient story. Interrogation had further revealed intermittent episodes of non-sustained ventricular tachycardia. Electrolytes (magnesium/potassium) were found within normal ranges. 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 Due to the above, patient had underwent subsequent cardiac catheterization revealing presence of an occluded RCA and mild disease involving the circumflex which decision had been made by Interventional Cardiology services to proceed with conservative management. Of note, patient does report he is managed by Dr. Parrish at [facility]. Currently denies any active chest pain, shortness of breath, palpitations, syncope, or any further cardiac related symptoms. Electrophysiology services were subsequently involved by Interventional Cardiology request for EP aspects of care. Past medical history includes coronary artery disease status post previous PCI's, ischemic cardiomyopathy, status post SJM/Phillips AICD implantation, hypertension, hyperlipidemia, hepatitis C, and obesity Echocardiogram: Conclusion lvef 20-25% dilated LV basal inferolateral wall aneurysm formation noted RV not well seen left atrium enlarged mild to moderate mitral regurg Cardiac Catheterization: Impression: Elevated left ventricular end-diastolic pressure at rest with decreased left ventricular ejection fraction. Coronary artery disease as noted above with an occluded RCA and mild disease of the circumflex. Recommendations: Medical therapy is warranted continue risk factor modifications. 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 Had been found to have evidence for prolonged QTC interval > 600 milliseconds on outpatient Amiodarone therapy with notable intermittent ventricular pacing which could have attribute to underlying QT prolongation. Electrolytes (magnesium/potassium) were found within normal ranges. Did undergo subsequent cardiac catheterization revealing no warranted coronary revascularization. 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 Recognizing the above, agree with discontinuation of previous Amiodarone therapy given evidence for QTC prolongation > 600 milliseconds. 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 Recommendation during the interim is to proceed with conservative management. Recommend titering Mexiletine to 300mg three time daily. Recognizing soft/marginal blood pressures, recommend holding Entresto/Aldactone (for now) to maximizing beta-leo therapy as hemodynamics permit. To sustain potassium levels greater than 4.0. To sustain magnesium levels greater than 2.0. To proceed with optimized medical therapy an aggressive risk factor modification. Avoidance of QTC prolonging agents is advised. Remainder of cardiac management as per Interventional Cardiology services. Remains stable from EP perspective. Will sign off. Proceed with close rate and rhythm surveillance Proceed with close hemodynamic surveillance Proceed with optimized blood pressure control Transfuse to sustain HGB level above 9.0 Sustain Magnesium level greater than 2.0 Sustain Potassium level greater than 4.0 Follow up renal function and electrolytes Management in telemetry Follow up edi consultant recommendations All available diagnostic labs, EKG's, and images were personally reviewed Patient's status, findings, and plan of care was reviewed and discussed with supervising physician Dr. Brock, who is in agreement with current plan of care. Plan of care discussed with and agreed upon by patient / primary RN Prognosis: Guarded Thank you for allowing me to participate in the care of this patient. Further recommendations based on patients clinical course and progression, primary attending, and other consultants. Will continue to follow with primary attending. If you have any questions or concerns, please do not hesitate to contact me. A total of 75 minutes was spent reviewing the patient record, examining the patient, making a diagnostic and therapeutic plan, discussing this plan with medical personnel, following up on diagnostic studies and following the patient for clinical stability excluding any and all procedures. At least 50% of this time was spent in direct, ccyd-no-cuva contact. Plan discussed with: Patient (patient and primary rn ) Dietary Evaluation Review Comments: Nutrition Recommendation: 1) CCHO 60gm + 2gm Na diet 2) Monitor PO intake, lab values, weight trend, and I/O Expected Outcomes/Goals: Intake to meet >75% estimated needs FU 3-5 days Plan discussed with: Patient (patient and primary rn) MARKEL TRINIDAD May 23, 2025 06:21
[2025-05-23 07:01] LABS: Anion Gap 9 (5-15); Carbon Dioxide 28 mmol/L (20-31); Potassium 4.9 mmol/L (3.5-5.1)
[2025-05-23 07:02] LABS: Calcium 9.3 mg/dL (8.7-10.4)
[2025-05-23 07:07] LABS: BUN/Creatinine Ratio 15.6 (10.0-20.0); Blood Urea Nitrogen 23 mg/dL (9-23)
[2025-05-23 07:11] LABS: Chloride 108 mmol/L (98-107); Glucose 131 mg/dL (74-106); Sodium 145 mmol/L (136-145)
[2025-05-23 08:00] VITALS: PULSE 102; PULSE 107; RESP 18; O2SAT 98
[2025-05-23 08:34] VITALS: BP 97/68; PULSE 105; RESP 20; TEMP 97.6; O2SAT 93
--- NOTE | 2025-05-23 10:37 | ECG ---
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
[2025-05-23 12:42] VITALS: BP 108/74; PULSE 101; RESP 18; TEMP 98; O2SAT 95
[2025-05-23] MEDS ORDERED: MET50T PO (14:21)
[2025-05-23] MEDS ORDERED: MEX150C PO (14:21)
[2025-05-23] MEDS ORDERED: EMPA1TAB PO (14:21)
--- NOTE | 2025-05-23 14:40 | DVHDS2 ---
Discharge Summary Date of Admission May 17, 2025 at 21:30 Date of Discharge: May 23, 2025 Labs/Diagnostic Data: Laboratory Results Test 05/23/25 10:42 05/23/25 05:34 05/22/25 05:52 05/21/25 05:20 POC Glucose 171 mg/dl (70-106) Sodium Level 145 mmol/L (136-145) Potassium Level 4.9 mmol/L (3.5-5.1) Chloride Level 108 mmol/L (98-107) Carbon Dioxide Level 28 mmol/L (20-31) Anion Gap 9 (5-15) Blood Urea Nitrogen 23 mg/dL (9-23) Creatinine 1.47 mg/dL (0.700-1.30) Glomerular Filtration Rate Calc 53 mL/min (>90) BUN/Creatinine Ratio 15.6 (10.0-20.0) Serum Glucose 131 mg/dL (74-106) Calcium Level 9.3 mg/dL (8.7-10.4) Magnesium Level 2.6 mg/dL (1.6-2.6) White Blood Count 6.2 10^3/uL (4.4-10.8) Red Blood Count 4.72 10^6/uL (4.5-5.90) Hemoglobin 14.3 g/dL (13.5-17.5) Hematocrit 41.4 % (41.0-53.0) Mean Corpuscular Volume 87.6 fL (80.0-100.0) Mean Corpuscular Hemoglobin 30.2 pg (28.0-32.0) Mean Corpuscular Hemoglobin Concent 34.5 g/dL (32.0-36.0) Red Cell Distribution Width 14.7 % (11.8-14.3) Platelet Count 228 10^3/uL (140-450) Mean Platelet Volume 8.2 fL (6.9-10.8) Neutrophils (%) (Auto) 61.9 % (37.0-80.0) Lymphocytes (%) (Auto) 25.5 % (10.0-50.0) Monocytes (%) (Auto) 10.2 % (0.0-12.0) Eosinophils (%) (Auto) 1.7 % (0.0-7.0) Basophils (%) (Auto) 0.7 % (0.0-2.0) Neutrophils # (Auto) 3.8 10 ^3/uL (1.6-8.6) Lymphocytes # (Auto) 1.6 10 ^3/uL (0.4-5.4) Monocytes # (Auto) 0.6 10 ^3/uL (0-1.3) Eosinophils # (Auto) 0.1 10 ^3/uL (0-0.8) Basophils # (Auto) 0 10 ^3/uL (0-0.2) Nucleated Red Blood Cells 0.1 % Test 05/21/25 04:30 05/20/25 09:03 05/18/25 04:33 05/17/25 21:43 Urine Color Light-yellow (Yellow) Urine Clarity Clear (Clear) Urine pH 5.5 (5.0-9.0) Urine Specific [place] 1.018 (1.001-1.035) Urine Protein Negative (Negative) Urine Ketones Negative (Negative) Urine Blood Negative /uL (Negative) Urine Nitrite Negative (Negative) Urine Bilirubin Negative (Negative) Urine Urobilinogen Normal mg/dL (Negative) Urine Leukocyte Esterase Negative /uL (Negative) Urine RBC None seen /hpf (0 - 3) Urine Microscopic WBC < 1 /HPF (0-3) Urine Squamous Epithelial Cells Few /hpf (<5) Urine Bacteria None seen /hpf (None Seen) Urine Glucose 4+ mg/dL (Normal) Triglycerides Level 109 mg/dL (< 150) Cholesterol Level 145 mg/dL (< 200) LDL Cholesterol 73 mg/dL (< 100) HDL Cholesterol 48 mg/dL (40-59) Thyroid Stimulating Hormone (TSH) 0.96 uIU/mL (0.55-4.78) Total Bilirubin 0.3 mg/dL (0.2-1.0) Aspartate Amino Transferase (AST) 23 U/L (13-40) Alanine Aminotransferase (ALT) 39 U/L (7-40) Alkaline Phosphatase 74 U/L (46-116) Total Protein 6.4 g/dL (5.7-8.2) Albumin 3.9 g/dL (3.2-4.8) Troponin I High Sensitivity 23 ng/L (</=54) Test 05/17/25 18:50 B-Type Natriuretic Peptide 504.18 pg/mL (0-100) Other Laboratory Tests 05/23/25 05:34 05/21/25 05:20 Brief Hx & Hospital Course: 65-year-old male with past medical history of COPD, CHF, ID, diabetes mellitus, and hypertension who presented to [facility] ED with complaint of chest pain. Patient reports he has been experiencing substernal chest pain at home, associated with lightheadedness, diaphoresis, hypotensive, getting worse that prompted this visit. Patient was seen and evaluated in the ED, laboratory data shows WBC 8.1, platelets 276, sodium 143, potassium 3.8, BUN 22, creatinine 1.62, GFR 47, glucose 255, calcium 9.3, BNP 504.18, troponin 16, AST 26, ALT 45, blood pressure 90/56, heart rate 92, temperature 97.8 F, O2 saturation 92% on oxygen. Chest x-ray revealing bronchovascular crowding due to low lung volumes with bibasilar atelectasis/pneumonia. Patient was started on IV antibiotic regimen azithromycin, please see medication orders section in the computer. On my assessment, at bedside, patient denied chest pain at this moment, no headache, dizziness, diaphoresis, currently on oxygen, no diarrhea, nausea, vomiting, fever, no chills. Patient was admitted for further evaluation and medical management. During hospital stay cardiology recommended cath and had CAD stable, no stent seen by ep and recommended conservative management - added metoprolol and meloxitane for better HR control Condition at Discharge: Good Final Diagnosis/Problems List acute on chronic systolic HF exacerbation ventricular fibrillation acute pneumonia due to gram negative Discharge Disposition: Home Discharge Instruct/Medications Diet: Cardiac 2g Na,low cholest Activity: No Restrictions, As Tolerated Follow Up/Referral: cardiology in 7 days Medications: meloxitene, metoprolol Scheduled Aspirin (Aspirin), 325 MG PO DAILY, (Reported) Empagliflozin (Jardiance), 10 MG PO DAILY Furosemide (Furosemide), 40 MG PO DAILY, (Reported) Metformin Hydrochloride (Metformin Hcl), 500 MG PO DAILY, (Reported) Metoprolol Tartrate (Lopressor Tablet), 50 MG PO BID Mexiletine Hcl (Mexiletine Hcl), 300 MG PO Q8HR Miscellaneous Medications Atorvastatin Calcium (Atorvastatin Calcium), (Reported) Carvedilol (Carvedilol), (Reported) Doxycycline Hyclate (Doxycycline Hyclate), (Reported) Ibuprofen (Ibuprofen), (Reported) Insulin Glargine (Lantus), (Reported) Lisinopril (Lisinopril), (Reported) Sulfamethoxazole W/Trimethopri (Sulfamethoxazole/Trimetho), (Reported) [Hydrocodon-Acetaminophn], (Reported) Discharge Statement: "Patient was advised to return to the ER or call 911 if any headaches, dizziness, shortness of breath, chest pain, abdominal pain, bleeding, fevers, or worsening of medical condition. Patient was counseled about treatment plan, medications, possible side effects, patientverbalized understanding. All questions were answered to the best of my ability. This discharge took greater then 30 minutes in planning, reviewing documentation, counseling the patient, and discussing with other team members." ASSESSMENT ASSESSMENT Assessment acute on chronic systolic HF exacerbation ventricular fibrillation acute pneumonia due to gram negative Date of Service: May 23, 2025 Billing Provider: BIRD DAVEY MD Common Visit Codes: 91795-[id number] DISCH DAY >30min BIRD DAVEY MD May 23, 2025 14:40
== END 2025-05-23 15:40 | disposition home or self-care (01) | DRG 286 ==
LOC: ER 18:28 → OVERFLOW 21:30 → TELE-WESTW 21:37
PROVIDERS: ADMIT Hospitalist; ATTEND Hospitalist
PROC: 4A023N7 Measurement of Cardiac Sampling and Pressure, Left Heart, Percutaneous Approach (ICD-10-PCS; principal; 2025-05-21)
PROC: B211YZZ Fluoroscopy of Multiple Coronary Arteries using Other Contrast (ICD-10-PCS; 2025-05-21)
PROC: B215YZZ Fluoroscopy of Left Heart using Other Contrast (ICD-10-PCS; 2025-05-21)
DX: I24.9 Acute ischemic heart disease, unspecified (principal); I49.01 Ventricular fibrillation; I50.23 Acute on chronic systolic (congestive) heart failure; J15.69 Pneumonia due to other Gram-negative bacteria; I11.0 Hypertensive heart disease with heart failure; J44.0 Chronic obstructive pulmonary disease with (acute) lower respiratory infection; I47.20 Ventricular tachycardia, unspecified; N17.9 Acute kidney failure, unspecified; E11.65 Type 2 diabetes mellitus with hyperglycemia; I34.0 Nonrheumatic mitral (valve) insufficiency; E66.9 Obesity, unspecified; M94.0 Chondrocostal junction syndrome [Tietze]; J98.4 Other disorders of lung; I25.5 Ischemic cardiomyopathy; Z68.34 Body mass index [BMI] 34.0-34.9, adult; E78.5 Hyperlipidemia, unspecified; F17.210 Nicotine dependence, cigarettes, uncomplicated; I25.10 Atherosclerotic heart disease of native coronary artery without angina pectoris; I25.2 Old myocardial infarction; Z82.49 Family history of ischemic heart disease and other diseases of the circulatory system; Z83.3 Family history of diabetes mellitus; Z98.61 Coronary angioplasty status; Z79.899 Other long term (current) drug therapy; Z95.0 Presence of cardiac pacemaker; Z79.82 Long term (current) use of aspirin
CPT/HCPCS: 36415; 71045; 80048; 80053; 80061; 81001; 82962; 83735; 83880; 84443; 84484; 85025; 86850; 86900; 86901; 93005; 93306; 93458; 96365; 99152; 99291; G0378; J1815; J2250; Q9967